=== PATIENT | female | born 1940 | race Caucasian/White ===

== ENCOUNTER → 2018-11-28 | Outpatient (CLI) | payer MEDICARE ==
--- NOTE | 2018-11-28 16:08 | US ---
EXAMINATION TYPE: US gallbladder DATE OF EXAM: 11/28/2018 COMPARISON: NONE CLINICAL HISTORY: Right Upper Quad Pain R10.11. EXAM MEASUREMENTS: Liver Length: 12.2 cm Gallbladder Wall: 0.3 cm CBD: 0.9 cm Right Kidney: 9.0 x 4.5 x 50 cm Pancreas: Obscured by bowel gas Liver: limited imaging due to excessive amount of gas and organ position in ribs Gallbladder: No stones seen Evidence for sonographic Field's sign: Yes CBD: dilated Right Kidney: No hydronephrosis or masses seen Patient states "kidneys ar not good, don't work" IMPRESSION: 1. Visualized portions of the abdomen ultrasound or unremarkable.
== END | disposition home or self-care (01) ==
LOC: RADUSWWP 10:17
PROVIDERS: ATTEND Internal Medicine
DX: R10.11 Right upper quadrant pain (principal)
CPT/HCPCS: 76705

== ENCOUNTER → 2019-03-02 | Outpatient (CLI) | payer MEDICARE ==
[2019-03-02 12:06] LABS: Basophils % (A) 0 %; Eosinophils # (A) 0.3 k/uL (0-0.7); Eosinophils % (A) 4 %; HGB 14.6 gm/dL (11.4-16.0); Lymphocytes # (A) 1.3 k/uL (1.0-4.8); Lymphocytes % (A) 17 %; MCH 29.4 pg (25.0-35.0); MCHC 31.1 g/dL (31.0-37.0); MCV 94.5 fL (80.0-100.0); Mean Platelet Volume 6.9; Monocytes # (A) 0.4 k/uL (0-1.0); Monocytes % (A) 5 %; Neutrophils # (A) 5.7 k/uL (1.3-7.7); Neutrophils % (A) 72 %; Platelet Count 304 k/uL (150-450); RBC 4.97 m/uL (3.80-5.40); RDW 13.6 % (11.5-15.5); WBC 7.8 k/uL (3.8-10.6)
[2019-03-02 16:14] LABS: Iron Saturation 17.19 (12.00-45.00)
[2019-03-02 16:21] LABS: Vitamin D 25 Hydroxy 35.2 ng/mL (30.0-100.0)
[2019-03-02 16:37] LABS: African American GFR (CKD) 45.5 (60.0-200.0); Anion Gap 14.8 mmol/L (4.00-12.00); BUN/Creat Ratio 25.38 Ratio (12.00-20.00); Calcium 9.9 mg/dL (8.7-10.3); Carbon Dioxide 22.2 mmol/L (21.6-31.8); LDL Cholesterol,Calculated 77.6 mg/dL (0.0-131.0); Potassium 4.7 mmol/L (3.5-5.5); VLDL Calculation 27.4 mg/dL (5.00-40.00)
[2019-03-02 19:08] LABS: Hemoglobin A1C 8.1 % (4.0-6.0)
== END | disposition home or self-care (01) ==
LOC: LABWHC1 10:39
PROVIDERS: ATTEND Nurse Practitioner Adult Health
DX: E11.65 Type 2 diabetes mellitus with hyperglycemia (principal); E78.5 Hyperlipidemia, unspecified; J44.9 Chronic obstructive pulmonary disease, unspecified; N18.3 Chronic kidney disease, stage 3 (moderate); I12.9 Hypertensive chronic kidney disease with stage 1 through stage 4 chronic kidney disease, or unspecified chronic kidney disease
CPT/HCPCS: 36415; 80048; 80061; 82306; 83036; 83540; 83550; 84443; 85025

== ENCOUNTER → 2019-03-13 | Outpatient (CLI) | payer MEDICARE ==
--- NOTE | 2019-03-13 15:43 | US ---
EXAMINATION TYPE: US mass soft tissue chest/back DATE OF EXAM: 03/13/2019 COMPARISON: NONE CLINICAL HISTORY: M71.38 Bursal cyst. palpable on back to the left of thoracic spine for years TECHNIQUE/FINDINGS: The patient's area of palpable abnormality in the left paracentral thoracic spine soft tissues was scanned. At this location there is a 4.8 x 3.7 x 0.9 cm well-circumscribed isoechoi c mass. This is avascular with internal septa appearing as a lipomatous lesion. IMPRESSION: Lipomatous lesion corresponds to the palpable abnormality with no aggressive features at this time. If there is interval growth clinically MRI with contrast could exclude malignant lipomato us lesion.
== END | disposition home or self-care (01) ==
LOC: RADUSWWP 15:02
PROVIDERS: ATTEND Internal Medicine
DX: M79.9 Soft tissue disorder, unspecified (principal)

== ENCOUNTER 2019-06-29 11:27 | Emergency (ER) | payer MEDICARE ==
[2019-06-29 11:38] VITALS: RESP 18; TEMP 97.8
[2019-06-29] MEDS ORDERED: SODIUM CHLORIDE 0.9% 1,000 ML IV ONE (11:40)
[2019-06-29] MEDS ORDERED: SODIUM CHLORIDE 0.9% 500 ML 500 ML IV STA ×2 (11:58→13:09)
[2019-06-29 12:15] LABS: Glucose,Whole Blood 234 mg/dL (75-99)
--- NOTE | 2019-06-29 12:15 | ED ---
Altered Mental Status HPI - General Chief Complaint: Altered Mental Status Stated Complaint: accidental overdose Time Seen by Provider: 06/29/19 11:40 Source: patient, family, RN notes reviewed Mode of arrival: ambulatory Limitations: no limitations - History of Present Illness Initial Comments: This 78-year-old female who was brought in by family for evaluation of some altered mental status decreased level of consciousness. Patient states that she took too much baclofen. She took a tablet at 6:00 last night and into between 6 and 11 last evening. She feels somewhat lightheaded dizzy when she gets up to walk no focal deficits he does have a slight headache no blurry vision no fevers chills nausea vomiting sweats no other symptoms. MD Complaint: altered mental status, decreased responsiveness - Related Data Home Medications Medication Instructions Recorded Confirmed DULoxetine HCL [Cymbalta] 30 mg PO DAILY 12/09/18 06/29/19 Furosemide [Lasix] 40 mg PO DAILY 12/09/18 06/29/19 cloNIDine HCL [Catapres] 0.1 mg PO DAILY 12/09/18 06/29/19 traMADol-ACETAMINOP 37.5-325MG 1 tab PO Q4HR PRN 12/09/18 06/29/19 [Ultracet] Albuterol Sulfate [Proair Hfa] 2 puff INHALATION RT-Q4H PRN 06/29/19 06/29/19 Budesonide/Formoterol Fumarate 2 puff INHALATION RT-BID 06/29/19 06/29/19 [Symbicort 160-4.5 Mcg Inhaler] Enalapril [Vasotec] 2.5 mg PO DAILY 06/29/19 06/29/19 Gabapentin [Neurontin] 300 mg PO QID 06/29/19 06/29/19 Lactulose 10 gm PO DAILY PRN 06/29/19 06/29/19 glipiZIDE XL [Glucotrol Xl] 2.5 mg PO DAILY 06/29/19 06/29/19 Previous Rx's Medication Instructions Recorded Aspirin 81 mg PO DAILY #30 chew 12/15/18 Atorvastatin [Lipitor] 20 mg PO DAILY #30 tab 12/15/18 Isosorbide Mononitrate ER [Imdur] 30 mg PO DAILY #30 tab.er.24h 12/15/18 Allergies Allergy/AdvReac Type Severity Reaction Status Date / Time latex Allergy Unknown Verified 06/29/19 13:36 Penicillins Allergy Unknown Verified 06/29/19 13:36 Review of Systems ROS Statement: Those systems with pertinent positive or pertinent negative responses have been documented in the HPI. ROS Other: All systems not noted in ROS Statement are negative. Past Medical History Past Medical History: COPD, Diabetes Mellitus, Eye Disorder, GERD/Reflux, Hypertension Additional Past Medical History / Comment(s): arthitis, hiatal hernia, blind in left eye History of Any Multi-Drug Resistant Organisms: None Reported Past Surgical History: Hysterectomy, Orthopedic Surgery Past Psychological History: No Psychological Hx Reported Smoking Status: Never smoker Past Alcohol Use History: None Reported Past Drug Use History: None Reported General Exam - General Exam Comments Initial Comments: This is a well-developed well-nourished awake alert oriented 3 female she does demonstrate difficulty with hearing Limitations: no limitations General appearance: alert, in no apparent distress Head exam: Present: atraumatic, normocephalic, normal inspection Eye exam: Present: normal appearance, PERRL, EOMI. Absent: scleral icterus, conjunctival injection, periorbital swelling ENT exam: Present: mucous membranes dry Neck exam: Present: normal inspection, full ROM, other (No stridor JVD or bruits). Absent: tenderness, meningismus, lymphadenopathy Respiratory exam: Present: normal lung sounds bilaterally. Absent: respiratory distress, wheezes, rales, rhonchi, stridor Cardiovascular Exam: Present: regular rate, normal rhythm, normal heart sounds. Absent: systolic murmur, diastolic murmur, rubs, gallop, clicks GI/Abdominal exam: Present: soft, normal bowel sounds. Absent: distended, tenderness, guarding, rebound, rigid Extremities exam: Present: normal inspection, full ROM, normal capillary refill. Absent: tenderness, pedal edema, joint swelling, calf tenderness Back exam: Present: normal inspection Neurological exam: Present: alert, oriented X3, CN II-XII intact Psychiatric exam: Present: normal affect, normal mood Skin exam: Present: warm, dry, intact, normal color. Absent: rash Course Vital Signs 06/29/19 11:35 Temperature 97.8 F Pulse Rate 70 Respiratory 18 Rate Blood Pressure 159/79 O2 Sat by Pulse 95 Oximetry Medical Decision Making - Medical Decision Making Patient showing much improved after IV fluids I did discuss [employer] her and her family patient will be discharged with instructions to not start her medications will tonight. Take it also as directed. Follow-up with her doctor return when necessary also increase oral fluids - Lab Data Result diagrams: 06/29/19 12:50 06/29/19 12:08 Lab Results 06/29/19 06/29/19 06/29/19 Range/Units 12:08 12:08 12:08 WBC (3.8-10.6) k/uL RBC (3.80-5.40) m/uL Hgb (11.4-16.0) gm/dL Hct (34.0-46.0) % MCV (80.0-100.0) fL MCH (25.0-35.0) pg MCHC (31.0-37.0) g/dL RDW (11.5-15.5) % Plt Count (150-450) k/uL Neutrophils % % Lymphocytes % % Monocytes % % Eosinophils % % Basophils % % Neutrophils # (1.3-7.7) k/uL Lymphocytes # (1.0-4.8) k/uL Monocytes # (0-1.0) k/uL Eosinophils # (0-0.7) k/uL Basophils # (0-0.2) k/uL PT (9.0-12.0) sec INR (<1.2) APTT (22.0-30.0) sec Sodium 138 (137-145) mmol/L Potassium 4.9 (3.5-5.1) mmol/L Chloride 106 (98-107) mmol/L Carbon Dioxide 19 L (22-30) mmol/L Anion Gap 13 mmol/L BUN 22 H (7-17) mg/dL Creatinine 0.79 (0.52-1.04) mg/dL Est GFR (CKD-EPI)AfAm 83 (>60 ml/min/1.73 sqM) Est GFR (CKD-EPI)NonAf 72 (>60 ml/min/1.73 sqM) Glucose 237 H (74-99) mg/dL POC Glucose (mg/dL) (75-99) mg/dL POC Glu Jewellery Designer ID Calcium 9.4 (8.4-10.2) mg/dL Magnesium 2.0 (1.6-2.3) mg/dL Total Bilirubin 0.6 (0.2-1.3) mg/dL AST 30 (14-36) U/L ALT 17 (9-52) U/L Alkaline Phosphatase 77 (38-126) U/L Ammonia 10 (<30) umol/L Creatine Kinase 60 (30-135) U/L Troponin I <0.012 (0.000-0.034) ng/mL Total Protein 6.6 (6.3-8.2) g/dL Albumin 3.9 (3.5-5.0) g/dL Urine Color Urine Appearance (Clear) Urine pH (5.0-8.0) Ur Specific [place] (1.001-1.035) Urine Protein (Negative) Urine Glucose (UA) (Negative) Urine Ketones (Negative) Urine Blood (Negative) Urine Nitrite (Negative) Urine Bilirubin (Negative) Urine Urobilinogen (<2.0) mg/dL Ur Leukocyte Esterase (Negative) Urine RBC (0-5) /hpf Urine WBC (0-5) /hpf Ur Squamous Epith Cells (0-4) /hpf Urine Opiates Screen (NotDetected) Ur Oxycodone Screen (NotDetected) Urine Methadone Screen (NotDetected) Ur Propoxyphene Screen (NotDetected) Ur Barbiturates Screen (NotDetected) U Tricyclic Antidepress (NotDetected) Ur Phencyclidine Scrn (NotDetected) Ur Amphetamines Screen (NotDetected) U Methamphetamines Scrn (NotDetected) U Benzodiazepines Scrn (NotDetected) Urine Cocaine Screen (NotDetected) U Marijuana (THC) Screen (NotDetected) 06/29/19 06/29/19 06/29/19 Range/Units 12:12 12:30 12:50 WBC 7.5 (3.8-10.6) k/uL RBC 4.46 (3.80-5.40) m/uL Hgb 13.9 (11.4-16.0) gm/dL Hct 41.9 (34.0-46.0) % MCV 93.8 (80.0-100.0) fL MCH 31.1 (25.0-35.0) pg MCHC 33.2 (31.0-37.0) g/dL RDW 13.0 (11.5-15.5) % Plt Count 238 (150-450) k/uL Neutrophils % 84 % Lymphocytes % 10 % Monocytes % 4 % Eosinophils % 2 % Basophils % 0 % Neutrophils # 6.2 (1.3-7.7) k/uL Lymphocytes # 0.7 L (1.0-4.8) k/uL Monocytes # 0.3 (0-1.0) k/uL Eosinophils # 0.1 (0-0.7) k/uL Basophils # 0.0 (0-0.2) k/uL PT (9.0-12.0) sec INR (<1.2) APTT (22.0-30.0) sec Sodium (137-145) mmol/L Potassium (3.5-5.1) mmol/L Chloride (98-107) mmol/L Carbon Dioxide (22-30) mmol/L Anion Gap mmol/L BUN (7-17) mg/dL Creatinine (0.52-1.04) mg/dL Est GFR (CKD-EPI)AfAm (>60 ml/min/1.73 sqM) Est GFR (CKD-EPI)NonAf (>60 ml/min/1.73 sqM) Glucose (74-99) mg/dL POC Glucose (mg/dL) 234 H (75-99) mg/dL POC Glu Jewellery Designer NELA Pamela Che Calcium (8.4-10.2) mg/dL Magnesium (1.6-2.3) mg/dL Total Bilirubin (0.2-1.3) mg/dL AST (14-36) U/L ALT (9-52) U/L Alkaline Phosphatase (38-126) U/L Ammonia (<30) umol/L Creatine Kinase (30-135) U/L Troponin I (0.000-0.034) ng/mL Total Protein (6.3-8.2) g/dL Albumin (3.5-5.0) g/dL Urine Color Light Yellow Urine Appearance Clear (Clear) Urine pH 5.5 (5.0-8.0) Ur Specific [place] 1.009 (1.001-1.035) Urine Protein Negative (Negative) Urine Glucose (UA) 2+ H (Negative) Urine Ketones Negative (Negative) Urine Blood Negative (Negative) Urine Nitrite Negative (Negative) Urine Bilirubin Negative (Negative) Urine Urobilinogen <2.0 (<2.0) mg/dL Ur Leukocyte Esterase Trace H (Negative) Urine RBC 1 (0-5) /hpf Urine WBC 2 (0-5) /hpf Ur Squamous Epith Cells 1 (0-4) /hpf Urine Opiates Screen Not Detected (NotDetected) Ur Oxycodone Screen Not Detected (NotDetected) Urine Methadone Screen Not Detected (NotDetected) Ur Propoxyphene Screen Not Detected (NotDetected) Ur Barbiturates Screen Not Detected (NotDetected) U Tricyclic Antidepress Not Detected (NotDetected) Ur Phencyclidine Scrn Not Detected (NotDetected) Ur Amphetamines Screen Not Detected (NotDetected) U Methamphetamines Scrn Not Detected (NotDetected) U Benzodiazepines Scrn Not Detected (NotDetected) Urine Cocaine Screen Not Detected (NotDetected) U Marijuana (THC) Screen Not Detected (NotDetected) 06/29/19 Range/Units 12:50 WBC (3.8-10.6) k/uL RBC (3.80-5.40) m/uL Hgb (11.4-16.0) gm/dL Hct (34.0-46.0) % MCV (80.0-100.0) fL MCH (25.0-35.0) pg MCHC (31.0-37.0) g/dL RDW (11.5-15.5) % Plt Count (150-450) k/uL Neutrophils % % Lymphocytes % % Monocytes % % Eosinophils % % Basophils % % Neutrophils # (1.3-7.7) k/uL Lymphocytes # (1.0-4.8) k/uL Monocytes # (0-1.0) k/uL Eosinophils # (0-0.7) k/uL Basophils # (0-0.2) k/uL PT 9.6 (9.0-12.0) sec INR 0.9 (<1.2) APTT 22.9 (22.0-30.0) sec Sodium (137-145) mmol/L Potassium (3.5-5.1) mmol/L Chloride (98-107) mmol/L Carbon Dioxide (22-30) mmol/L Anion Gap mmol/L BUN (7-17) mg/dL Creatinine (0.52-1.04) mg/dL Est GFR (CKD-EPI)AfAm (>60 ml/min/1.73 sqM) Est GFR (CKD-EPI)NonAf (>60 ml/min/1.73 sqM) Glucose (74-99) mg/dL POC Glucose (mg/dL) (75-99) mg/dL POC Glu Jewellery Designer ID Calcium (8.4-10.2) mg/dL Magnesium (1.6-2.3) mg/dL Total Bilirubin (0.2-1.3) mg/dL AST (14-36) U/L ALT (9-52) U/L Alkaline Phosphatase (38-126) U/L Ammonia (<30) umol/L Creatine Kinase (30-135) U/L Troponin I (0.000-0.034) ng/mL Total Protein (6.3-8.2) g/dL Albumin (3.5-5.0) g/dL Urine Color Urine Appearance (Clear) Urine pH (5.0-8.0) Ur Specific [place] (1.001-1.035) Urine Protein (Negative) Urine Glucose (UA) (Negative) Urine Ketones (Negative) Urine Blood (Negative) Urine Nitrite (Negative) Urine Bilirubin (Negative) Urine Urobilinogen (<2.0) mg/dL Ur Leukocyte Esterase (Negative) Urine RBC (0-5) /hpf Urine WBC (0-5) /hpf Ur Squamous Epith Cells (0-4) /hpf Urine Opiates Screen (NotDetected) Ur Oxycodone Screen (NotDetected) Urine Methadone Screen (NotDetected) Ur Propoxyphene Screen (NotDetected) Ur Barbiturates Screen (NotDetected) U Tricyclic Antidepress (NotDetected) Ur Phencyclidine Scrn (NotDetected) Ur Amphetamines Screen (NotDetected) U Methamphetamines Scrn (NotDetected) U Benzodiazepines Scrn (NotDetected) Urine Cocaine Screen (NotDetected) U Marijuana (THC) Screen (NotDetected) - Radiology Data Radiology results: report reviewed (I did review the imaging and report no acute findings. OLD CALCIFIED lesion noted on CAT scan), image reviewed Disposition Clinical Impression: Medication reaction, Accidental overdose, Dehydration Disposition: HOME SELF-CARE Condition: Good Instructions (If sedation given, give patient instructions): Dehydration (ED) Additional Instructions: Take your medications as directed do not start baclofen until tonight Is patient prescribed a controlled substance at d/c from ED?: No Referrals: Hu Crawford MD [Primary Care Provider] - 1-2 days
[2019-06-29 12:35] LABS: Appearance,Urine Clear (Clear); Bilirubin,Urine Negative (Negative); Blood,Urine Negative (Negative); Color,Urine Light Yellow; Glucose,Urine (UA) 2+ (Negative); Ketones,Urine Negative (Negative); Leukocyte Esterase,Urine Trace (Negative); Nitrite,Urine Negative (Negative); PH, Urine 5.5 (5.0-8.0); Protein,Urine Negative (Negative); RBC,Urine 1 /hpf (0-5); Specific Gravity,Urine 1.009 (1.001-1.035); Squamous Epithelial Cell,Urine 1 /hpf (0-4); Urobilinogen,Urine <2.0 mg/dL (<2.0)
[2019-06-29 12:40] LABS: Albumin 3.9 g/dL (3.5-5.0); Calcium 9.4 mg/dL (8.4-10.2); Total Bilirubin 0.6 mg/dL (0.2-1.3); Total Protein 6.6 g/dL (6.3-8.2)
[2019-06-29 12:42] LABS: Potassium 4.9 mmol/L (3.5-5.1)
--- NOTE | 2019-06-29 12:50 | XR ---
EXAMINATION TYPE: XR chest 2V DATE OF EXAM: 06/29/2019 COMPARISON: 12/13/2018 HISTORY: Shortness of breath TECHNIQUE: Frontal and lateral views of the chest are obtained. FINDINGS: Scattered senescent parenchymal changes noted. No evidence for infiltrate. No evidence for atelectasis. Heart size is stable. Mediastinal structures are stable and grossly unremarkable. No evidence for hilar prominence. Degenerative changes dorsal spine. IMPRESSION: 1. No evidence for acute pulmonary disease.
--- NOTE | 2019-06-29 12:51 | CT ---
EXAMINATION TYPE: CT brain wo con DATE OF EXAM: 06/29/2019 COMPARISON: 12/09/2018 HISTORY: 79-year-old female confusion, altered mental status TECHNIQUE: Examination was done in axial plane without intravenous contrast. Coronal and sagittal r econstructions performed. CT DLP: 1142.4 mGycm Automated exposure control for dose reduction was used. FINDINGS: There is no evidence of acute intracranial hemorrhage, acute ischemic changes, mass effect, or extra -axial fluid collection. There is no effacement of cerebral sulci or basal subarachnoid cisterns. T here is no hydrocephalus. There is no midline shift. Hart-white matter distinction is preserved. Atherosclerotic calcifications within the carotid siphons. Mild patchy white matter hypodensities in both cerebral hemispheres are unchanged. Partially calcified extra-axial lesion along the anterior left frontal convexity measures 1.2 cm, unc hanged from 12/09/2018, a small meningioma is suspected. Paranasal sinuses and mastoid air cells well pneumatized. Orbits and globes are intact. IMPRESSION: 1. A partially calcified 1.2 cm extra-axial lesion along the anterior left frontal convexity stable f rom 12/09/2018. A small meningioma is suspected. Consider 6 month follow-up contrast enhanced MRI to re assess. 2. Mild patchy changes of chronic small vessel ischemic disease. 3. No acute intracranial abnormality seen.
[2019-06-29 12:55] LABS: Amphetamine Screen,Urine Not Detected (NotDetected); Barbiturate Screen,Urine Not Detected (NotDetected); Benzodiazepines Screen,Urine Not Detected (NotDetected); Cocaine Screen,Urine Not Detected (NotDetected); Methadone Screen, Urine Not Detected (NotDetected); Opiate Screen,Urine Not Detected (NotDetected); Oxycodone Screen, Urine Not Detected (NotDetected); Phencyclidine Screen,Urine Not Detected (NotDetected); Tricyclic Antidepressant,Urine Not Detected (NotDetected); Urn Cannabinoid Scrn Not Detected (NotDetected)
[2019-06-29 13:23] LABS: Basophils % (A) 0 %; Eosinophils # (A) 0.1 k/uL (0-0.7); Eosinophils % (A) 2 %; HCT 41.9 % (34.0-46.0); HGB 13.9 gm/dL (11.4-16.0); Lymphocytes # (A) 0.7 k/uL (1.0-4.8); Lymphocytes % (A) 10 %; MCH 31.1 pg (25.0-35.0); MCHC 33.2 g/dL (31.0-37.0); MCV 93.8 fL (80.0-100.0); Mean Platelet Volume 6.1; Monocytes # (A) 0.3 k/uL (0-1.0); Monocytes % (A) 4 %; Neutrophils # (A) 6.2 k/uL (1.3-7.7); Neutrophils % (A) 84 %; Platelet Count 238 k/uL (150-450); RBC 4.46 m/uL (3.80-5.40); WBC 7.5 k/uL (3.8-10.6)
[2019-06-29 13:38] LABS: INR 0.9 (<1.2); Partial Thromboplastin Time 22.9 sec (22.0-30.0); Prothrombin Time 9.6 sec (9.0-12.0)
[2019-06-29 14:23] VITALS: BP 165/99; PULSE 56
== END 2019-06-29 14:21 | disposition home or self-care (01) ==
LOC: EC 11:27
DX: T42.8X1A Poisoning by antiparkinsonism drugs and other central muscle-tone depressants, accidental (unintentional), initial encounter (principal); E86.0 Dehydration; H91.90 Unspecified hearing loss, unspecified ear; J44.9 Chronic obstructive pulmonary disease, unspecified; E11.9 Type 2 diabetes mellitus without complications; I10 Essential (primary) hypertension; M19.90 Unspecified osteoarthritis, unspecified site; H54.62 Unqualified visual loss, left eye, normal vision right eye; Z88.0 Allergy status to penicillin; Z91.040 Latex allergy status; Z79.51 Long term (current) use of inhaled steroids; Z79.84 Long term (current) use of oral hypoglycemic drugs; Z79.891 Long term (current) use of opiate analgesic; Z79.899 Other long term (current) drug therapy
CPT/HCPCS: 36415; 70450; 71046; 80053; 80306; 81001; 82140; 82550; 83735; 84484; 85025; 85610; 85730; 93005; 96360; 96361; 99285

== ENCOUNTER 2019-07-01 00:08 | Observation (INO) | payer MEDICARE ==
[2019-07-01] MEDS ORDERED: SODIUM CHLORIDE 0.9% 500 ML 500 ML IV ONE (00:25)
[2019-07-01] MEDS ORDERED: MORPHINE SULFATE 4 MG/ML SYRINGE IV STA (00:45)
--- NOTE | 2019-07-01 01:05 | ED ---
General Adult HPI - General Chief complaint: Altered Mental Status Stated complaint: Recheck, Altered Time Seen by Provider: 07/01/19 00:21 Source: patient, family, RN notes reviewed, old records reviewed Mode of arrival: ambulatory Limitations: no limitations - History of Present Illness Initial comments: 79-year-old female patient past history COPD, type 2 diabetes presents ED chief complaint of altered mental status. Patient was seen yesterday for dehydration, accidentally taking too many of her muscle relaxers. Patient was discharged in the hospital yesterday. reports that he was out running errands today, came back to find his somewhat confused. She is currently complaining of a headache, mild epigastric pain. Also complains of some back pain which patient reports is chronic. Denies any chest pain or shortness breath at this time. Denies any other complaints. Systemic: Pt denies fatigue, fever/chills, rash. Pt denies weakness, night sweats, weight loss. Neuro: Pt denies headache, visual disturbances, syncope or pre-syncope. HEENT: Pt denies ocular discharge or irritation, otalgia, rhinorrhea, pharyngitis or notable lymphadenopathy. Cardiopulmonary: Pt denies chest pain, SOB, heart palpitations, dyspnea on exertion. Abdominal/GI: Pt denies n/v/d. : Pt denies dysuria, burning w/ urination, frequency/urgency. Denies new onset urinary or bowel incontinence. MSK: Pt denies myalgia, loss of strength or function in extremities. Neuro: Pt denies new onset weakness, paresthesias. - Related Data Home Medications Medication Instructions Recorded Confirmed DULoxetine HCL [Cymbalta] 30 mg PO DAILY 12/09/18 06/29/19 Furosemide [Lasix] 40 mg PO DAILY 12/09/18 06/29/19 cloNIDine HCL [Catapres] 0.1 mg PO DAILY 12/09/18 06/29/19 traMADol-ACETAMINOP 37.5-325MG 1 tab PO Q4HR PRN 12/09/18 06/29/19 [Ultracet] Albuterol Sulfate [Proair Hfa] 2 puff INHALATION RT-Q4H PRN 06/29/19 06/29/19 Budesonide/Formoterol Fumarate 2 puff INHALATION RT-BID 06/29/19 06/29/19 [Symbicort 160-4.5 Mcg Inhaler] Enalapril [Vasotec] 2.5 mg PO DAILY 06/29/19 06/29/19 Gabapentin [Neurontin] 300 mg PO QID 06/29/19 06/29/19 Lactulose 10 gm PO DAILY PRN 06/29/19 06/29/19 glipiZIDE XL [Glucotrol Xl] 2.5 mg PO DAILY 06/29/19 06/29/19 Previous Rx's Medication Instructions Recorded Aspirin 81 mg PO DAILY #30 chew 12/15/18 Atorvastatin [Lipitor] 20 mg PO DAILY #30 tab 12/15/18 Isosorbide Mononitrate ER [Imdur] 30 mg PO DAILY #30 tab.er.24h 12/15/18 Allergies Allergy/AdvReac Type Severity Reaction Status Date / Time latex Allergy Unknown Verified 07/01/19 00:19 Penicillins Allergy Unknown Verified 07/01/19 00:19 Review of Systems ROS Statement: Those systems with pertinent positive or pertinent negative responses have been documented in the HPI. ROS Other: All systems not noted in ROS Statement are negative. Past Medical History Past Medical History: COPD, Diabetes Mellitus, Eye Disorder, GERD/Reflux, Hypertension Additional Past Medical History / Comment(s): arthitis, hiatal hernia, blind in left eye History of Any Multi-Drug Resistant Organisms: None Reported Past Surgical History: Hysterectomy, Orthopedic Surgery Past Psychological History: No Psychological Hx Reported Smoking Status: Never smoker Past Alcohol Use History: None Reported Past Drug Use History: None Reported General Exam - General Exam Comments Initial Comments: Constitutional: NAD, AOX3, Pt has pleasant affect. HEENT: NC/AT, trachea midline, neck supple, no lymphadenopathy. Posterior pharynx non erythematous, without exudates. External ears appear normal, without discharge. Mucous membranes moist. Eyes PERRLA, EOM intact. There is no scleral icterus. No pallor noted. Cardiopulmonary: RRR, no murmurs, rubs or gallops, no JVD noted. Lungs CTAB in anterior and posterior werner. No peripheral edema. Abdominal exam: Abdomen soft and non-distended. Abdomen mildly tender to palpation in epigastric region. No guarding noted. No pulsatile mass. Bowel sounds active in LLQ. No hepatosplenomegaly. No ecchymosis Neuro: CN II-XII intact. No nuchal rigidity. No raccon eyes, no kirk sign, no hemotympanum. No cervical spinal tenderness. NIH 0. MSK: No posterior calf tenderness bilaterally, homans sign negative bilaterally. Posterior tibialis and radial pulse +2 bilaterally. Sensation intact in upper and lower extremities. Full active ROM in upper and lower extremities, 5/5 stregnth. Limitations: no limitations Course Vital Signs 07/01/19 07/01/19 00:16 03:38 Temperature 97.3 F L Pulse Rate 80 80 Respiratory 20 18 Rate Blood Pressure 168/98 172/89 O2 Sat by Pulse 96 95 Oximetry Medical Decision Making - Medical Decision Making 79-year-old female patient past history COPD, type 2 diabetes presents ED chief complaint of altered mental status. Patient was seen yesterday for dehydration, accidentally taking too many of her muscle relaxers. Patient was discharged in the hospital yesterday. reports that he was out running errands today, came back to find his somewhat confused. She is currently complaining of a headache, mild epigastric pain. Also complains of some back pain which patient reports is chronic. Denies any chest pain or shortness breath at this time. Denies any other complaints. Patient vital signs displayed mild hypertension otherwise stable. Physical exam displayed an NIH of 0. Neurologic exam within normal limits. Distal pulses intact equal, mild epigastric tenderness. Left investigations. She'll mild dehydration. Troponin 0.018. EKG nonischemic. 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 No change from last exam. Chest x- ray displayed chronic elevated right diaphragm. CT of aorta with contrast and display any dissection. Patient feeling much improved. Reports the headache is resolved. Abdomen nontender. Patient continues to be alert and oriented 3, neurologic exam within normal limits. Patient will be admitted for altered mental status case discussed with Dr. Pelletier. - Lab Data Result diagrams: 07/01/19 01:12 07/01/19 01:12 Lab Results 07/01/19 07/01/19 07/01/19 Range/Units 01:12 01:12 01:12 WBC 11.6 H (3.8-10.6) k/uL RBC 5.29 (3.80-5.40) m/uL Hgb 16.9 H D (11.4-16.0) gm/dL Hct 49.4 H (34.0-46.0) % MCV 93.3 (80.0-100.0) fL MCH 31.9 (25.0-35.0) pg MCHC 34.2 (31.0-37.0) g/dL RDW 13.3 (11.5-15.5) % Plt Count 305 (150-450) k/uL Neutrophils % 85 % Lymphocytes % 8 % Monocytes % 4 % Eosinophils % 1 % Basophils % 1 % Neutrophils # 9.8 H (1.3-7.7) k/uL Lymphocytes # 1.0 (1.0-4.8) k/uL Monocytes # 0.5 (0-1.0) k/uL Eosinophils # 0.1 (0-0.7) k/uL Basophils # 0.1 (0-0.2) k/uL PT 9.8 (9.0-12.0) sec INR 0.9 (<1.2) APTT 24.5 (22.0-30.0) sec Sodium 141 (137-145) mmol/L Potassium 4.6 (3.5-5.1) mmol/L Chloride 106 (98-107) mmol/L Carbon Dioxide 24 (22-30) mmol/L Anion Gap 11 mmol/L BUN 18 H (7-17) mg/dL Creatinine 0.90 (0.52-1.04) mg/dL Est GFR (CKD-EPI)AfAm 71 (>60 ml/min/1.73 sqM) Est GFR (CKD-EPI)NonAf 61 (>60 ml/min/1.73 sqM) Glucose 160 H (74-99) mg/dL Calcium 10.5 H (8.4-10.2) mg/dL Total Bilirubin 1.0 (0.2-1.3) mg/dL AST 34 (14-36) U/L ALT 29 (9-52) U/L Alkaline Phosphatase 127 H (38-126) U/L Ammonia (<30) umol/L Troponin I (0.000-0.034) ng/mL Total Protein 8.5 H (6.3-8.2) g/dL Albumin 5.0 (3.5-5.0) g/dL Urine Color Urine Appearance (Clear) Urine pH (5.0-8.0) Ur Specific [place] (1.001-1.035) Urine Protein (Negative) Urine Glucose (UA) (Negative) Urine Ketones (Negative) Urine Blood (Negative) Urine Nitrite (Negative) Urine Bilirubin (Negative) Urine Urobilinogen (<2.0) mg/dL Ur Leukocyte Esterase (Negative) Urine RBC (0-5) /hpf Urine WBC (0-5) /hpf Ur Squamous Epith Cells (0-4) /hpf Hyaline Casts (0-2) /lpf Urine Mucus (None) /hpf Urine Opiates Screen (NotDetected) Ur Oxycodone Screen (NotDetected) Urine Methadone Screen (NotDetected) Ur Propoxyphene Screen (NotDetected) Ur Barbiturates Screen (NotDetected) U Tricyclic Antidepress (NotDetected) Ur Phencyclidine Scrn (NotDetected) Ur Amphetamines Screen (NotDetected) U Methamphetamines Scrn (NotDetected) U Benzodiazepines Scrn (NotDetected) Urine Cocaine Screen (NotDetected) U Marijuana (THC) Screen (NotDetected) 07/01/19 07/01/19 07/01/19 Range/Units 01:12 01:33 01:40 WBC (3.8-10.6) k/uL RBC (3.80-5.40) m/uL Hgb (11.4-16.0) gm/dL Hct (34.0-46.0) % MCV (80.0-100.0) fL MCH (25.0-35.0) pg MCHC (31.0-37.0) g/dL RDW (11.5-15.5) % Plt Count (150-450) k/uL Neutrophils % % Lymphocytes % % Monocytes % % Eosinophils % % Basophils % % Neutrophils # (1.3-7.7) k/uL Lymphocytes # (1.0-4.8) k/uL Monocytes # (0-1.0) k/uL Eosinophils # (0-0.7) k/uL Basophils # (0-0.2) k/uL PT (9.0-12.0) sec INR (<1.2) APTT (22.0-30.0) sec Sodium (137-145) mmol/L Potassium (3.5-5.1) mmol/L Chloride (98-107) mmol/L Carbon Dioxide (22-30) mmol/L Anion Gap mmol/L BUN (7-17) mg/dL Creatinine (0.52-1.04) mg/dL Est GFR (CKD-EPI)AfAm (>60 ml/min/1.73 sqM) Est GFR (CKD-EPI)NonAf (>60 ml/min/1.73 sqM) Glucose (74-99) mg/dL Calcium (8.4-10.2) mg/dL Total Bilirubin (0.2-1.3) mg/dL AST (14-36) U/L ALT (9-52) U/L Alkaline Phosphatase (38-126) U/L Ammonia <9 (<30) umol/L Troponin I 0.018 (0.000-0.034) ng/mL Total Protein (6.3-8.2) g/dL Albumin (3.5-5.0) g/dL Urine Color Yellow Urine Appearance Clear (Clear) Urine pH 6.0 (5.0-8.0) Ur Specific [place] 1.019 (1.001-1.035) Urine Protein 2+ H (Negative) Urine Glucose (UA) Trace H (Negative) Urine Ketones 1+ H (Negative) Urine Blood Trace H (Negative) Urine Nitrite Negative (Negative) Urine Bilirubin Negative (Negative) Urine Urobilinogen 2.0 (<2.0) mg/dL Ur Leukocyte Esterase Negative (Negative) Urine RBC 2 (0-5) /hpf Urine WBC 2 (0-5) /hpf Ur Squamous Epith Cells <1 (0-4) /hpf Hyaline Casts 4 H (0-2) /lpf Urine Mucus Rare H (None) /hpf Urine Opiates Screen Not Detected (NotDetected) Ur Oxycodone Screen Not Detected (NotDetected) Urine Methadone Screen Not Detected (NotDetected) Ur Propoxyphene Screen Not Detected (NotDetected) Ur Barbiturates Screen Not Detected (NotDetected) U Tricyclic Antidepress Not Detected (NotDetected) Ur Phencyclidine Scrn Not Detected (NotDetected) Ur Amphetamines Screen Not Detected (NotDetected) U Methamphetamines Scrn Not Detected (NotDetected) U Benzodiazepines Scrn Not Detected (NotDetected) Urine Cocaine Screen Not Detected (NotDetected) U Marijuana (THC) Screen Not Detected (NotDetected) - EKG Data -: EKG Interpreted by Me (and Dr. Pelletier) EKG Comments: Ventricular rate 82,. Full and 72, QRS 70, QT/QTC 380 says 443. Normal sinus rhythm, left axis deviation, pulse criteria for left ventricular hypertrophy. No concern for acute ischemia at this time. Disposition Clinical Impression: AMS (altered mental status), Dehydration Disposition: ADMITTED IP TO THIS HOSP Condition: Serious Is patient prescribed a controlled substance at d/c from ED?: No Referrals: Hu Crawford MD [Primary Care Provider] - 1-2 days
--- NOTE | 2019-07-01 01:11 | CT ---
EXAMINATION TYPE: CT brain wo con DATE OF EXAM: 07/01/2019 COMPARISON: 06/29/2019 HISTORY: ams CT DLP: 1087.4 mGycm Automated exposure control for dose reduction was used. FINDINGS: Ventricles have normal size. There is no mass effect nor midline shift. There is no sign of intracran ial hemorrhage. The calvarium is intact. There is no evidence of cerebral edema. There is somewhat bulbous appearance of the tip of the basilar artery. 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 NO EVIDENCE OF CEREBRAL INFARCT OR HEMORRHAGE. Brain not change d compared to last exam.
--- NOTE | 2019-07-01 01:12 | XR ---
EXAMINATION TYPE: XR chest 2V DATE OF EXAM: 07/01/2019 COMPARISON: 06/29/2019 HISTORY: Altered mental status TECHNIQUE: Frontal and lateral views of the chest are obtained. FINDINGS: There is elevated right diaphragm. There is minimal linear density at the lung bases. Ther e is no heart failure. Heart size is normal. There are chest leads. IMPRESSION: Chronic elevated right diaphragm. This could relate to paralysis. No heart failure or pu lmonary consolidation. No change.
[2019-07-01 01:21] LABS: Basophils # (A) 0.1 k/uL (0-0.2); Basophils % (A) 1 %; Eosinophils # (A) 0.1 k/uL (0-0.7); Eosinophils % (A) 1 %; HCT 49.4 % (34.0-46.0); Lymphocytes % (A) 8 %; MCH 31.9 pg (25.0-35.0); MCHC 34.2 g/dL (31.0-37.0); MCV 93.3 fL (80.0-100.0); Mean Platelet Volume 5.7; Monocytes # (A) 0.5 k/uL (0-1.0); Monocytes % (A) 4 %; Neutrophils # (A) 9.8 k/uL (1.3-7.7); Neutrophils % (A) 85 %; Platelet Count 305 k/uL (150-450); RBC 5.29 m/uL (3.80-5.40); RDW 13.3 % (11.5-15.5); WBC 11.6 k/uL (3.8-10.6)
[2019-07-01 01:25] LABS: HGB 16.9 gm/dL (11.4-16.0)
[2019-07-01 01:32] LABS: Calcium 10.5 mg/dL (8.4-10.2); Potassium 4.6 mmol/L (3.5-5.1); Total Protein 8.5 g/dL (6.3-8.2)
[2019-07-01 01:37] LABS: INR 0.9 (<1.2); Prothrombin Time 9.8 sec (9.0-12.0)
[2019-07-01 01:44] LABS: Appearance,Urine Clear (Clear); Bilirubin,Urine Negative (Negative); Blood,Urine Trace (Negative); Color,Urine Yellow; Glucose,Urine (UA) Trace (Negative); Hyaline Casts,Urine 4 /lpf (0-2); Ketones,Urine 1+ (Negative); Leukocyte Esterase,Urine Negative (Negative); Mucus,Urine Rare /hpf; Nitrite,Urine Negative (Negative); Protein,Urine 2+ (Negative); RBC,Urine 2 /hpf (0-5); Specific Gravity,Urine 1.019 (1.001-1.035); Squamous Epithelial Cell,Urine <1 /hpf (0-4); WBC,Urine 2 /hpf (0-5)
[2019-07-01 01:46] LABS: Partial Thromboplastin Time 24.5 sec (22.0-30.0)
[2019-07-01 02:03] LABS: Amphetamine Screen,Urine Not Detected (NotDetected); Barbiturate Screen,Urine Not Detected (NotDetected); Benzodiazepines Screen,Urine Not Detected (NotDetected); Cocaine Screen,Urine Not Detected (NotDetected); Methadone Screen, Urine Not Detected (NotDetected); Opiate Screen,Urine Not Detected (NotDetected); Oxycodone Screen, Urine Not Detected (NotDetected); Phencyclidine Screen,Urine Not Detected (NotDetected); Tricyclic Antidepressant,Urine Not Detected (NotDetected); Urn Cannabinoid Scrn Not Detected (NotDetected)
--- NOTE | 2019-07-01 02:49 | CT ---
EXAMINATION TYPE: CT angio thor/abd pel aorta DATE OF EXAM: 07/01/2019 COMPARISON: CT chest 05/02/2013 HISTORY: back pain CT DLP: 1191.8 mGycm. Automated Exposure Control for Dose Reduction was Utilized. CONTRAST: CT scan of the thorax, abdomen and pelvis is performed with IV Contrast, patient injected with 100 mL of Isovue 370. There are 3-D post processed images. FINDINGS: There is asymmetric enlargement of the left thyroid lobe that measures 4.5 cm. Thoracic aorta is inta ct. There is no thoracic aortic aneurysm or dissection. The ascending aorta measures 3.6 cm. There is elevated right diaphragm. There is some atelectasis at the right lung base. I see no filling defects in the pulmonary arteries. There is arterial flow in the superior mesenteric artery and celiac artery. There is bilateral arteri al flow in the renal arteries. There is some cortical thinning in the left kidney compared to the rig ht. There is no hydronephrosis. There is arterial flow in the iliac and femoral arteries. Thoracic an d lumbar spine appear intact. I see no compression fracture. Sternum is intact. Ribs appear intact. Liver spleen stomach pancreas appear normal. Bile ducts are not dilated. Gallbladder appears normal. Abdominal aorta is atheromatous. There is no retroperitoneal adenopathy. There is no mesenteric edema . There is no ascites or free air. There is no sign of bowel obstruction. IMPRESSION: Mild atherosclerotic vascular disease. No aortic aneurysm or dissection. There is mild atrophy of the left kidney compared to the right that is nonspecific. No obvious significant renal artery stenosis. Elevated right diaphragm could relate to diaphragm paralysis.
[2019-07-01] MEDS ORDERED: SODIUM CHLORIDE 0.9% 500 ML 500 ML IV STA (03:06)
[2019-07-01] MEDS ORDERED: NALOXONE 0.4 MG/ML 1 ML VIAL IV PRN (03:34)
[2019-07-01] MEDS: SODIUM CHLORIDE 0.9% 1,000 ML IV SCH ×2 (03:51→16:01)
[2019-07-01 07:35] LABS: Glucose,Whole Blood 115 mg/dL (75-99)
[2019-07-01] MEDS ORDERED: traMADol-ACETAMINOP 37.5-325MG 1 EACH TAB PO PRN (08:49)
[2019-07-01] MEDS ORDERED: IPRATROPIUM-ALBUTEROL 3 ML NEB INHALATION PRN (08:51)
--- NOTE | 2019-07-01 08:52 | P.HPIM ---
History of Present Illness H&P Date: 07/01/19 Patient is 79-year-old female with a PMH of type 2 diabetes mellitus, COPD, and hypertension who presented to the ED for altered mental status. The patient was a somewhat poor historian and does not know why she is at the hospital, though was able to name the hospital. No family available at the bedside. She endorsed mild epigastric and substernal chest discomfort, nonradiating, unable to quanti fy, 3 out of 10, with no alleviating or exacerbating features. She endorsed mild associated shortness of breath with some nausea. She was unable to say for how long she's been having these symptoms. Review of the patient's chart revealed the patient was seen in the emergency room the day prior after she accidentally took an extra dose of her baclofen. The patient was ultimately brought in earlier today by her due to her confusion. The patient denied headaches, weakness, numbness, tingling, palpitations, dizziness, fever, chills, vomiting, or diarrhea. She underwent an extensive evaluation in the emergency room with EKG showing normal sinus rhythm at 82 bpm with LVH criteria. Brain CT revealed a possible basilar artery tip aneurysm but was otherwise unremarkable. Chest x-ray was unremarkable and thoracic aorta computed tomography scan was negative. Laboratory evaluation revealed a WBC count of 11.6, troponin of 0.018, hemoglobin of 16.9, BUN 18, creatinine 0.9, calcium 10.5, total protein 8.5, with urine toxicology screen negative. Patient was admitted to the medicine service for altered mental status. Review of Systems Pertinent positives and negatives as discussed in HPI, a complete review of systems was performed and all other systems are negative. Past Medical History Past Medical History: COPD, Diabetes Mellitus, Eye Disorder, GERD/Reflux, Hypertension Additional Past Medical History / Comment(s): arthitis, hiatal hernia, blind in left eye History of Any Multi-Drug Resistant Organisms: None Reported Past Surgical History: Hysterectomy, Orthopedic Surgery Past Psychological History: No Psychological Hx Reported Smoking Status: Never smoker Past Alcohol Use History: None Reported Past Drug Use History: None Reported Medications and Allergies Home Medications Medication Instructions Recorded Confirmed Type DULoxetine HCL [Cymbalta] 30 mg PO DAILY 12/09/18 07/01/19 History Furosemide [Lasix] 40 mg PO DAILY 12/09/18 07/01/19 History cloNIDine HCL [Catapres] 0.1 mg PO DAILY 12/09/18 07/01/19 History traMADol-ACETAMINOP 37.5-325MG 1 tab PO Q4HR PRN 12/09/18 07/01/19 History [Ultracet] Aspirin 81 mg PO DAILY #30 chew 12/15/18 07/01/19 Rx Atorvastatin [Lipitor] 20 mg PO DAILY #30 tab 12/15/18 07/01/19 Rx Isosorbide Mononitrate ER [Imdur] 30 mg PO DAILY #30 tab.er.24h 12/15/18 07/01/19 Rx Albuterol Sulfate [Proair Hfa] 2 puff INHALATION RT-Q4H PRN 06/29/19 07/01/19 History Budesonide/Formoterol Fumarate 2 puff INHALATION RT-BID 06/29/19 07/01/19 History [Symbicort 160-4.5 Mcg Inhaler] Enalapril [Vasotec] 2.5 mg PO DAILY 06/29/19 07/01/19 History Gabapentin [Neurontin] 300 mg PO QID 06/29/19 07/01/19 History Lactulose 10 gm PO DAILY PRN 06/29/19 07/01/19 History glipiZIDE XL [Glucotrol Xl] 2.5 mg PO DAILY 06/29/19 07/01/19 History Baclofen [Lioresal] 10 mg PO TID PRN 07/01/19 07/01/19 History Allergies Allergy/AdvReac Type Severity Reaction Status Date / Time latex Allergy Unknown Verified 07/01/19 08:05 Penicillins Allergy Unknown Verified 07/01/19 08:05 Physical Exam Vitals: Vital Signs Temp Pulse Pulse Resp BP BP Pulse Ox 07/01/19 06:46 98.0 F 80 16 170/80 92 L 07/01/19 03:38 80 18 172/89 95 07/01/19 00:16 97.3 F L 80 20 168/98 96 Intake and Output 06/30/19 07/01/19 07/01/19 22:59 06:59 14:59 Other: Weight 55.338 kg General: non toxic, no distress, appears at stated age, normal weight Derm: no unusual rashes/lesions no unusual ecchymoses, warm, dry Head: atraumatic, normocephalic, symmetric Eyes: EOMI, no lid lag, anicteric sclera, pupils equal round reactive to light ENT: Nose and ears atraumatic, no thrush, no pharyngeal erythema Neck: No thyromegaly, no cervical lymphadenopathy, trachea midline, supple Mouth: no lip lesion, mucus membranes moist Cardiovascular: S1S2 reg, no murmur, positive posterior tibial pulse bilateral, no edema, capillary refill less than 2 seconds Lungs: CTA bilateral, no rhonchi, no rales , no accessory muscle use Abdominal: soft, nontender to palpation, no guarding, no appreciable organo megaly, normal bowel sounds Ext: no gross muscle atrophy, muscle strength 5 out of 5 in all 4 extremities grossly, no contractures Neuro: CN II-XI grossly intact, light touch intact all 4 extremities, finger to nose within normal limits Psych: Alert, awake, oriented to self and place, not oriented to time, appropriate affect Results CBC & Chem 7: 07/01/19 01:12 07/01/19 01:12 Labs: Abnormal Lab Results - Last 24 Hours (Table) 07/01/19 07/01/19 07/01/19 Range/Units 01:12 01:12 01:33 WBC 11.6 H (3.8-10.6) k/uL Hgb 16.9 H D (11.4-16.0) gm/dL Hct 49.4 H (34.0-46.0) % Neutrophils # 9.8 H (1.3-7.7) k/uL BUN 18 H (7-17) mg/dL Glucose 160 H (74-99) mg/dL POC Glucose (mg/dL) (75-99) mg/dL Calcium 10.5 H (8.4-10.2) mg/dL Alkaline Phosphatase 127 H (38-126) U/L Total Protein 8.5 H (6.3-8.2) g/dL Urine Protein 2+ H (Negative) Urine Glucose (UA) Trace H (Negative) Urine Ketones 1+ H (Negative) Urine Blood Trace H (Negative) Hyaline Casts 4 H (0-2) /lpf Urine Mucus Rare H (None) /hpf 07/01/19 Range/Units 07:34 WBC (3.8-10.6) k/uL Hgb (11.4-16.0) gm/dL Hct (34.0-46.0) % Neutrophils # (1.3-7.7) k/uL BUN (7-17) mg/dL Glucose (74-99) mg/dL POC Glucose (mg/dL) 115 H (75-99) mg/dL Calcium (8.4-10.2) mg/dL Alkaline Phosphatase (38-126) U/L Total Protein (6.3-8.2) g/dL Urine Protein (Negative) Urine Glucose (UA) (Negative) Urine Ketones (Negative) Urine Blood (Negative) Hyaline Casts (0-2) /lpf Urine Mucus (None) /hpf Assessment and Plan Plan: Altered mental status -Unknown etiology -Obtain collateral information from -UA and U Tox unremarkable -Fall and seizure precautions -Consider neurology evaluation if persists Chest pain, SOB, nausea -Troponin 0.018 -Continue to trend -Cardiac monitoring Type 2 DM -RENEA with FS HTN -C/w home meds COPD -C/w Symbicort with Duonebs prn DVT prophylaxis -Heparin The patient is admitted with an anticipated less than 2 midnight stay for evaluation of AMS CODE STATUS: Full Code Discussed with: Patient Anticipated discharge date: 1-[address]: Home A total of 40 minutes was spent on the care of this complex patient more than 50% of the time was spent in counseling and care coordination.
[2019-07-01] MEDS ORDERED: LISINOPRIL 5 MG TAB PO SCH (09:00)
[2019-07-01 11:20] LABS: Glucose,Whole Blood 117 mg/dL (75-99)
--- NOTE | 2019-07-01 11:53 | P.CRDCN ---
History of Present Illness Consult date: 07/01/19 Requesting physician: Karen Nava Reason for Consult (text): chest pain Chief complaint: altered mental status History of present illness: This is a pleasantly confused 79-year-old female patient of Dr. rDaper. The patient is a poor historian therefore most of the HPI and past medical history w as obtained from the chart. She has a history of COPD, type 2 diabetes, hypertension, GERD and hyperlipidemia. She was last seen in the office by Dr. Draper for a Lexiscan MPI in February of this year which came back to show no evidence of ischemia. She presented this admission brought in by her family for worsening confusion and altered mental status. 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 EKG on admission showed normal sinus rhythm with no ST-T wave changes compared to previous. We were asked to see the patient in consultation after the patient mentioned during exam by admitting physician that she's been experiencing intermittent episodes of chest discomfort, not activity related, no aggravating or relieving factors and no associated symptoms. Troponins have been negative 2. Upon examination, patient denies complaints at this time. Of note patient did have an ec hocardiogram with Doppler study done in December of this year which showed normal LV systolic function with an ejection fraction between 60-65% with mild MR and mild TR. Past Medical History Past Medical History: COPD, Diabetes Mellitus, Eye Disorder, GERD/Reflux, Hypertension Additional Past Medical History / Comment(s): arthitis, hiatal hernia, blind in left eye History of Any Multi-Drug Resistant Organisms: None Reported Past Surgical History: Hysterectomy, Orthopedic Surgery Past Psychological History: No Psychological Hx Reported Smoking Status: Never smoker Past Alcohol Use History: None Reported Past Drug Use History: None Reported Medications and Allergies Home Medications Medication Instructions Recorded Confirmed Type DULoxetine HCL [Cymbalta] 30 mg PO DAILY 12/09/18 07/01/19 History Furosemide [Lasix] 40 mg PO DAILY 12/09/18 07/01/19 History cloNIDine HCL [Catapres] 0.1 mg PO DAILY 12/09/18 07/01/19 History traMADol-ACETAMINOP 37.5-325MG 1 tab PO Q4HR PRN 12/09/18 07/01/19 History [Ultracet] Aspirin 81 mg PO DAILY #30 chew 12/15/18 07/01/19 Rx Atorvastatin [Lipitor] 20 mg PO DAILY #30 tab 12/15/18 07/01/19 Rx Isosorbide Mononitrate ER [Imdur] 30 mg PO DAILY #30 tab.er.24h 12/15/18 07/01/19 Rx Albuterol Sulfate [Proair Hfa] 2 puff INHALATION RT-Q4H PRN 06/29/19 07/01/19 History Budesonide/Formoterol Fumarate 2 puff INHALATION RT-BID 06/29/19 07/01/19 History [Symbicort 160-4.5 Mcg Inhaler] Enalapril [Vasotec] 2.5 mg PO DAILY 06/29/19 07/01/19 History Gabapentin [Neurontin] 300 mg PO QID 06/29/19 07/01/19 History Lactulose 10 gm PO DAILY PRN 06/29/19 07/01/19 History glipiZIDE XL [Glucotrol Xl] 2.5 mg PO DAILY 06/29/19 07/01/19 History Baclofen [Lioresal] 10 mg PO TID PRN 07/01/19 07/01/19 History Allergies Allergy/AdvReac Type Severity Reaction Status Date / Time latex Allergy Unknown Verified 07/01/19 08:05 Penicillins Allergy Unknown Verified 07/01/19 08:05 Physical Exam Vitals: Vital Signs Temp Pulse Pulse Resp BP BP Pulse Ox 07/01/19 08:00 80 16 07/01/19 06:46 98.0 F 80 16 170/80 92 L 07/01/19 03:38 80 18 172/89 95 07/01/19 00:16 97.3 F L 80 20 168/98 96 Intake and Output 06/30/19 07/01/19 07/01/19 22:59 06:59 14:59 Other: Voiding Method Toilet Weight 55.338 kg PHYSICAL EXAMINATION: HEENT: Head is atraumatic, normocephalic. Pupils equal, round. Neck is supple. There is no elevated jugular venous pressure. HEART EXAMINATION: Heart sounds regular, S1 and S2 with a systolic murmur. CHEST EXAMINATION: Lungs are clear to auscultation and precussion. No chest wall tenderness is noted on palpation or with deep breathing. ABDOMEN: Soft, nontender. Bowel sounds are heard. No organomegaly noted. EXTREMITIES: 2+ peripheral pulses with no evidence of peripheral edema and no calf tenderness noted. NEUROLOGIC patient is awake, alert and oriented x2 with memory loss and confusion noted. . Results 07/01/19 01:12 07/01/19 01:12 Cardiac Enzymes 07/01/19 07/01/19 07/01/19 Range/Units 01:12 01:12 09:07 AST 34 (14-36) U/L Troponin I 0.018 0.015 (0.000-0.034) ng/mL Coagulation 07/01/19 Range/Units 01:12 PT 9.8 (9.0-12.0) sec APTT 24.5 (22.0-30.0) sec CBC 07/01/19 Range/Units 01:12 WBC 11.6 H (3.8-10.6) k/uL RBC 5.29 (3.80-5.40) m/uL Hgb 16.9 H D (11.4-16.0) gm/dL Hct 49.4 H (34.0-46.0) % Plt Count 305 (150-450) k/uL Comprehensive Metabolic Panel 07/01/19 Range/Units 01:12 Sodium 141 (137-145) mmol/L Potassium 4.6 (3.5-5.1) mmol/L Chloride 106 (98-107) mmol/L Carbon Dioxide 24 (22-30) mmol/L BUN 18 H (7-17) mg/dL Creatinine 0.90 (0.52-1.04) mg/dL Glucose 160 H (74-99) mg/dL Calcium 10.5 H (8.4-10.2) mg/dL AST 34 (14-36) U/L ALT 29 (9-52) U/L Alkaline Phosphatase 127 H (38-126) U/L Total Protein 8.5 H (6.3-8.2) g/dL Albumin 5.0 (3.5-5.0) g/dL Current Medications Generic Name Dose Route Start Last Admin Trade Name Freq PRN Reason Stop Dose Admin Albuterol/Ipratropium 3 ml 07/01/19 08:51 Duoneb 0.5 Mg-3 Mg/3 Ml Soln INHALATION RT-QID PRN Shortness Of Breath Or Wheezing Aspirin 81 mg 07/01/19 09:00 Aspirin PO DAILY [facility] Atorvastatin Calcium 20 mg 07/01/19 09:00 Lipitor PO DAILY [facility] Budesonide/Formoterol Fumarate 2 puff 07/01/19 20:00 Symbicort 160-4.5 Mcg Inhaler INHALATION RT-BID [facility] Clonidine 0.1 mg 07/01/19 09:00 Catapres PO DAILY [facility] Furosemide 40 mg 07/01/19 09:00 Lasix PO DAILY [facility] Heparin Sodium (Porcine) 5,000 unit 07/01/19 16:00 Heparin SQ Q8HR [facility] Sodium Chloride 1,000 mls @ 80 mls/hr 07/01/19 03:45 07/01/19 03:51 Saline 0.9% IV 80 mls/hr .[id number] [facility] Administration Insulin Aspart 0 unit 07/01/19 12:30 Novolog SQ ACHS [facility] Protocol Isosorbide Mononitrate 30 mg 07/01/19 09:00 Imdur PO DAILY [facility] Lisinopril 5 mg 07/01/19 09:00 Zestril PO DAILY [facility] Naloxone HCl 0.2 mg 07/01/19 03:34 Narcan IV Q2M PRN Opioid Reversal Tramadol/Acetaminophen 1 each 07/01/19 08:49 Ultracet PO Q4HR PRN Moderate Pain Intake and Output 06/30/19 07/01/19 07/01/19 22:59 06:59 14:59 Other: Voiding Method Toilet Weight 55.338 kg 07/01/19 01:12 07/01/19 01:12 Assessment and Plan Assessment: #1 atypical chest pain, likely not cardiac in nature, no ischemic changes noted on EKG and negative Lexiscan MPI done in February of this year #2 altered mental status #3 hypertension #4 hyperlipidemia #5 diabetes mellitus Plan: From cardiology's perspective, we will obtain 2-D echo with Doppler to assess cardiac structure and function. Medications were reviewed and we will continue the same. We will follow-up on the echocardiogram. Further recommendations to follow. [employer] note has been reviewed, I agree with a documented findings and plan of care. Patient was seen and examined.
[2019-07-01] MEDS: INSULIN ASPART (NovoLOG) 100 UNIT/ML VIAL SQ SCH ×3 (12:05→20:49)
[2019-07-01] MEDS: ATORVASTATIN 20 MG TAB PO SCH (12:11)
[2019-07-01] MEDS: ISOSORBIDE MONONITRATE ER 30 MG TAB.ER.24H PO SCH (12:12)
[2019-07-01] MEDS: cloNIDine HCL 0.1 MG TAB PO SCH (12:12)
[2019-07-01] MEDS: ASPIRIN 81 MG PO SCH (12:12)
[2019-07-01] MEDS: FUROSEMIDE 40 MG TAB PO SCH (12:12)
[2019-07-01 12:43] VITALS: BMI 23.8
[2019-07-01] MEDS ORDERED: SULFAMETHOX-TMP 400-80MG 1 EACH TAB PO STA (15:24)
[2019-07-01] MEDS: HEPARIN SODIUM,PORCINE 5,000 UNIT/ML 1 ML VIAL SQ SCH ×2 (16:01→23:40)
--- NOTE | 2019-07-01 16:06 | P.PN ---
Progress Note - Text Progress Note Date: 07/01/19 Briefly this is a 79-year-old female with a past medical history of of COPD, type 2 diabetes, hypertension, GERD and hyperlipidemia that presented with confusion and was admitted for likely metabolic encephalopathy. 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 EKG showed no ST-T wave changes CTA showed mild atherosclerotic vascular disease, mild atrophy of the left kidney compared to the right. Neurology was consulted to see the patient awaiting recommendations, on my evaluation the patient was awake alert oriented to self and place, she had noted bilateral lower extremity erythema that was tender to touch. The patient was continued on therapy from admission and had Bactrim added for suspicion of bilateral lower extremity cellulitis
[2019-07-01 17:26] LABS: Glucose,Whole Blood 113 mg/dL (75-99)
[2019-07-01] MEDS: SYMBICORT 160-4.5 MCG INHALER INHALATION SCH (19:34)
[2019-07-01] MEDS: SULFAMETHOX-TMP 800-160MG 1 EACH TAB PO SCH (20:33)
[2019-07-01] MEDS: LISINOPRIL 5 MG TAB PO SCH (20:33)
[2019-07-01 20:43] LABS: Glucose,Whole Blood 140 mg/dL (75-99)
[2019-07-02] MEDS: SODIUM CHLORIDE 0.9% 1,000 ML IV SCH ×2 (03:47→15:36)
[2019-07-02 07:13] LABS: Glucose,Whole Blood 94 mg/dL (75-99)
[2019-07-02 07:35] LABS: Basophils % (A) 1 %; Eosinophils # (A) 0.3 k/uL (0-0.7); Eosinophils % (A) 4 %; HCT 41.2 % (34.0-46.0); Lymphocytes # (A) 1.6 k/uL (1.0-4.8); Lymphocytes % (A) 21 %; MCH 31.3 pg (25.0-35.0); MCHC 33.6 g/dL (31.0-37.0); MCV 93.3 fL (80.0-100.0); Mean Platelet Volume 6.2; Monocytes # (A) 0.5 k/uL (0-1.0); Monocytes % (A) 6 %; Neutrophils % (A) 67 %; Platelet Count 245 k/uL (150-450); RBC 4.42 m/uL (3.80-5.40); RDW 13.1 % (11.5-15.5); WBC 7.5 k/uL (3.8-10.6)
[2019-07-02 07:37] LABS: Calcium 8.6 mg/dL (8.4-10.2)
[2019-07-02 07:38] LABS: HGB 13.8 gm/dL (11.4-16.0); Potassium 4.7 mmol/L (3.5-5.1)
[2019-07-02] MEDS: INSULIN ASPART (NovoLOG) 100 UNIT/ML VIAL SQ SCH ×4 (07:49→20:41)
[2019-07-02] MEDS: SYMBICORT 160-4.5 MCG INHALER INHALATION SCH ×2 (08:04→19:41)
[2019-07-02] MEDS: cloNIDine HCL 0.1 MG TAB PO SCH (09:35)
[2019-07-02] MEDS: HEPARIN SODIUM,PORCINE 5,000 UNIT/ML 1 ML VIAL SQ SCH ×3 (09:35→23:19)
[2019-07-02] MEDS: LISINOPRIL 5 MG TAB PO SCH (09:35)
[2019-07-02] MEDS: SULFAMETHOX-TMP 800-160MG 1 EACH TAB PO SCH ×2 (09:35→20:41)
[2019-07-02] MEDS: ASPIRIN 81 MG PO SCH (09:35)
[2019-07-02] MEDS: ISOSORBIDE MONONITRATE ER 30 MG TAB.ER.24H PO SCH (09:35)
[2019-07-02] MEDS: ATORVASTATIN 20 MG TAB PO SCH (09:35)
[2019-07-02] MEDS: FUROSEMIDE 40 MG TAB PO SCH (09:35)
--- NOTE | 2019-07-02 10:25 | P.PN ---
Subjective Progress Note Date: 07/02/19 This is a pleasantly confused 79-year-old female patient of Dr. Quezada. The patient is a poor historian therefore most of the HPI and past medical history was obtained from the chart. She has a history of COPD, type 2 diabetes, hypertension, GERD and hyperlipidemia. She was last seen in the office by Dr. Draper for a Lexiscan MPI in February of this year which came back to show no evidence of ischemia. She presented this admission brought in by her family for worsening confusion and altered mental status. 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 EKG on admission showed normal sinus rhythm with no ST-T wave changes compared to previous. We were asked to see the patient in consultation after the patient mentioned during exam by admitting physician that she's been experiencing intermittent episodes of chest discomfort, not activity related, no aggravating or relieving factors and no associated symptoms. Troponins have been negative 2. Upon examination, patient denies complaints at this time. Of note patient did have an echocardiogram with Doppler study done in December of this year which showed normal LV systolic function with an ejection fraction between 60-65% with mild MR and mild TR. 07/02/19 Patient was seen and examined resting comfortably in bed. She complains of l ower leg redness and tenderness and has been started on Bactrim for possible cellulitis. Continues to complain of occasional shortness of breath and atypical chest discomfort that is random in occurrence not related to exertion with no relieving or aggravating factors and no associated symptoms. Labs this morning showed a normal CBC, BUN of 18 and creatinine 0.9. Objective - Vital Signs Vital signs: Vital Signs Temp 98.5 F 07/02/19 05:31 Pulse 70 07/02/19 05:31 Resp 18 07/02/19 05:31 BP 152/81 07/02/19 05:31 Pulse Ox 93 L 07/02/19 05:31 Intake & Output 1107/02/19 07/02/19 18:59 06:59 18:59 Intake Total 240 1080 Balance 240 1080 Intake: Intake, IV Titration 960 Amount Sodium Chloride 0.9% 1, 960 000 ml @ 80 mls/hr IV . [id number] [facility]IE[facility] Rx#:[id number] Oral 240 120 Other: Voiding Method Toilet Toilet # Voids 2 1 - Exam PHYSICAL EXAMINATION: HEENT: Head is atraumatic, normocephalic. Pupils equal, round. Neck is supple. There is no elevated jugular venous pressure. Hard of hearing. HEART EXAMINATION: Heart sounds regular, S1 and S2 with a systolic murmur. CHEST EXAMINATION: Lungs are clear to auscultation and precussion. No chest wall tenderness is noted on palpation or with deep breathing. ABDOMEN: Soft, nontender. Bowel sounds are heard. No organomegaly noted. EXTREMITIES: 2+ peripheral pulses with no evidence of peripheral edema. Mild erythema and pain with palpation noted to bilateral lower legs. NEUROLOGIC patient is awake, alert and oriented x2 with memory loss and confusion noted. - Labs CBC & Chem 7: 07/02/19 06:55 07/02/19 06:55 Labs: Abnormal Lab Results - Last 24 Hours (Table) 07/01/19 07/01/19 07/01/19 Range/Units 11:18 17:21 20:42 Chloride (98-107) mmol/L BUN (7-17) mg/dL POC Glucose (mg/dL) 117 H 113 H 140 H (75-99) mg/dL 07/02/19 Range/Units 06:55 Chloride 110 H (98-107) mmol/L BUN 18 H (7-17) mg/dL POC Glucose (mg/dL) (75-99) mg/dL Assessment and Plan Assessment: #1 atypical chest pain, likely not cardiac in nature, no ischemic changes noted on EKG and negative Lexiscan MPI done in February of this year #2 altered mental status #3 hypertension #4 hyperlipidemia #5 diabetes mellitus #6 cellulitis Plan: From cardiology's perspective, medications were reviewed and will continue the same. From our standpoint, patient may be discharged home and follow-up in the office with Dr Quezada. [employer] note has been reviewed, I agree with a documented findings and plan of care. Patient was seen and examined.
--- NOTE | 2019-07-02 11:45 | P.PN ---
Subjective Progress Note Date: 07/02/19 Patient seen and examined at bedside, according to nurse patient a and O 2 unsure what her baseline is, patient has been eating half to full meals and has been up and ambulatory to the restroom and back.nursing reporting resolving redness in her lower extremities. Patient having episodes of atypical chest pain and occasional episodes of shortness of breath. Her blood pressure continues to be elevated this morning and on increasing recheck 152/102 Objective - Vital Signs Vital signs: Vital Signs Temp 98.5 F 07/02/19 05:31 Pulse 70 07/02/19 05:31 Resp 18 07/02/19 05:31 BP 152/81 07/02/19 05:31 Pulse Ox 93 L 07/02/19 05:31 Intake & Output 07/01/19 07/02/19 07/02/19 18:59 06:59 18:59 Intake Total 240 1080 Balance 240 1080 Intake: Intake, IV Titration 960 Amount Sodium Chloride 0.9% 1, 960 000 ml @ 80 mls/hr IV . [id number] [facility] Rx#:[id number] Oral 240 120 Other: Voiding Method Toilet Toilet # Voids 2 1 - Exam Constitutional: No acute distress, conversant, pleasant Eyes: Anicteric sclerae, moist conjunctiva, no lid-lag, PERRLA ENMT: NC/AT,Oropharynx clear, no erythema, exudates Neck:Supple, FROM, no masses, or JVD, No carotid bruits; No thyromegaly Lungs: Clear to auscultation, Clear to percussion, Normal respiratory effort, no accessory muscle use Cardiovascular: Heart regular in rate and rhythm, No murmurs, gallops, or rubs no peripheral edema Abdominal: Soft Nontender, nom distended, no guarding, no rebound or rigidity, Normoactive bowel sounds No hepatomegaly, No splenomegaly, No palpable mass No abdominal wall hernia noted Skin: Resolving erythema bilateral lower extremities that is warm to touch, minimal induration Extremities:No digital cyanosis No clubbing, Pedal pulses intact and symmetrical Radial pulses intact and symmetrical Normal gait and station, No calf tenderness Psychiatric: Alert and oriented to person, place, Appropriate affect Intact judgement Neuro: Muscles Strength 5/5 in all 4 extremities, Sensation to light touch grossly present throughout, Cranial nerves II-XII grossly intact. 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 no evidence of cerebral infarction or hemorrhage * Likely secondary to medications versus infection due to cellulitis Atypical chest pain * Troponin was negative at 0.015, EKG showed sinus mechanism without suggestion of acute ischemia * Patient had a Lexiscan in February of this year that was negative for evidence of ischemia, echocardiogram from December 25 showed normal preserved LV EF 60-65% with mild MR and TR * Thoracic CT showed mild atherosclerotic vascular disease no aneurysm or dissection Type 2 diabetes with hyperglycemia * Blood sugars are well controlled today's FBS 94 * Continue correctional scale coverage Essential hypertension * Blood pressure elevated this morning prior to a.m. meds and on recheck * We'll titrate up her Imdur to 60 mg daily and lisinopril to 10 mg twice a day Bilateral lower extremity cellulitis * Initiated on antibiotic therapy with Bactrim yesterday Disposition * Approaching discharge goals of cardiology signed off on her however blood pr essure continues to be elevated but think she would need improved blood pressure control * We will recheck blood pressure and labs after titrating up her medications
[2019-07-02 11:47] LABS: Glucose,Whole Blood 105 mg/dL (75-99)
[2019-07-02] MEDS ORDERED: ISOSORBIDE MONONITRATE ER 30 MG TAB.ER.24H PO STA (11:51)
[2019-07-02 17:17] LABS: Glucose,Whole Blood 117 mg/dL (75-99)
[2019-07-02 20:33] LABS: Glucose,Whole Blood 163 mg/dL (75-99)
[2019-07-02] MEDS: LISINOPRIL 10 MG TAB PO SCH (20:41)
[2019-07-03] MEDS: SODIUM CHLORIDE 0.9% 1,000 ML IV SCH ×2 (05:50→18:13)
[2019-07-03 07:07] LABS: Glucose,Whole Blood 107 mg/dL (75-99)
[2019-07-03] MEDS: SYMBICORT 160-4.5 MCG INHALER INHALATION SCH ×2 (07:23→19:18)
[2019-07-03] MEDS: FUROSEMIDE 40 MG TAB PO SCH (07:53)
[2019-07-03] MEDS: ISOSORBIDE MONONITRATE ER 60 MG TAB.ER.24H PO SCH (07:53)
[2019-07-03] MEDS: HEPARIN SODIUM,PORCINE 5,000 UNIT/ML 1 ML VIAL SQ SCH ×2 (07:53→15:28)
[2019-07-03] MEDS: LISINOPRIL 10 MG TAB PO SCH ×2 (07:53→20:08)
[2019-07-03] MEDS: SULFAMETHOX-TMP 800-160MG 1 EACH TAB PO SCH ×2 (07:53→21:06)
[2019-07-03] MEDS: cloNIDine HCL 0.1 MG TAB PO SCH (07:54)
[2019-07-03] MEDS: INSULIN ASPART (NovoLOG) 100 UNIT/ML VIAL SQ SCH ×4 (07:54→20:08)
[2019-07-03] MEDS: ATORVASTATIN 20 MG TAB PO SCH (07:54)
[2019-07-03] MEDS: ASPIRIN 81 MG PO SCH (07:54)
[2019-07-03 09:26] LABS: Basophils % (A) 0 %; Eosinophils # (A) 0.2 k/uL (0-0.7); Eosinophils % (A) 2 %; HCT 43.1 % (34.0-46.0); HGB 14.6 gm/dL (11.4-16.0); Lymphocytes # (A) 1.2 k/uL (1.0-4.8); Lymphocytes % (A) 15 %; MCH 31.3 pg (25.0-35.0); MCHC 33.9 g/dL (31.0-37.0); MCV 92.4 fL (80.0-100.0); Mean Platelet Volume 5.8; Monocytes # (A) 0.4 k/uL (0-1.0); Monocytes % (A) 5 %; Neutrophils # (A) 6.4 k/uL (1.3-7.7); Neutrophils % (A) 77 %; Platelet Count 286 k/uL (150-450); RBC 4.67 m/uL (3.80-5.40); RDW 13.2 % (11.5-15.5); WBC 8.3 k/uL (3.8-10.6)
[2019-07-03 09:52] LABS: Calcium 9.7 mg/dL (8.4-10.2)
[2019-07-03 11:28] LABS: Glucose,Whole Blood 92 mg/dL (75-99)
--- NOTE | 2019-07-03 12:47 | P.CNNES ---
History of Present Illness Consult date: 07/03/19 Reason for Consult: AMS Chief complaint: AMS History of Present Illness: HISTORY OF PRESENT ILLNESS: Thank you for allowing me to evaluate Ms. Elma Jain. Ms. Jain is a 79 year-old woman with PMHx of COPD, DM, GERD, HTN, arthritis, hiatal hernia, L eye blindness, who presented to [facility] for altered mental status. Patient had come to the hospital after having taken to many also relaxers, and patient was discharged from the hospital on 06/30/2019. However, on the day of patient's presentation, has been found patient somewhat confused. Daughter is at bedside. Daughter states that patient has been doing better since she came back to the hospital in terms of her mental status, but she's worried about the CT Head findings of an aneurysm. Patient has been complaining of headache for several months, in the R occipital region, and patient is able to point at the exact location of her headache although she does report that she sometimes has headaches in the R frontal area. Denies blurry/double vision, nausea, vomiting, photophobia, phonophobia. Patient had previously fallen on the back of her head, in the area that her headache is. Patient states the headache is intermittent, lasts about 5-10 minutes, right now about 5/10 pain. Denies any weakness or numbness, but she's been having neuropathy with [id number] sensation for years for which she takes gabapentin. PAST MEDICAL HISTORY: COPD, DM, GERD, HTN, arthritis, hiatal hernia, L eye blindness PAST SURGICAL HISTORY: Hyseterecomy, orthopedic surgery HOME MEDICATIONS: Clonidine, Tramadol. Furosemide, Duloxetine, ASA, Isosorbide, Atorvasatin, Ga bapentin 300mg QID, Glipizide 2.5 mg PO qday, Symbicort, Albuterol, Enalapril, Lactulose, Baclofen ALLERGIES: Latex Penicillins SOCIAL HISTORY: Never smoker. REVIEW OF SYSTEMS: The 14 systems are reviewed and no additional points are identified compared to the review of systems documented history and physical PHYSICAL EXAMINATION: VITAL SIGNS: T 98.2 HR 68 RR 16 BP 152/84 O2 sat 93% on RA GEN.: NAD, pleasant and cooperative HEENT: NCAT, sclera without icterus NECK: Supple, no carotid bruit SKIN AND EXTREMITIES: Warm to touch, no edema NEURO: MENTAL STATUS: Patient alert and oriented to self, place, time. Able to name the current president. Speech fluent, able to name and repeat, following all commands readily. No right and left disorientation, neglect. CRANIAL NERVES II THROUGH XII: II: Pupils are equal and reactive to light symmetrically. No afferent pupillary defect. Visual werner are intact. III, IV, : No ptosis. Extraocular movements full. No nystagmus. V: Facial sensation intact from V1-3. VII. No clear facial asymmetry. VIII: Hearing intact to finger rub bilaterally. IX, X: Symmetric palate elevation. XI: Shoulder shrug intact. XII: Tongue midline without fasciculation or atrophy. MOTOR: Normal bulk/tone. No pronator drift or tremor. Strength is 5/5 throughout all 4 extremities. Patient with significant [id number] pain in her legs that lightly pressured touch causes significant pain. SENSORY: Intact to light touch in all 4 extremities. REFLEXES: 2+ throughout. Toes are downgoing. COORDINATION: Finger to nose and heel to smith intact. No dysmetria. GAIT: Narrow-based and stable. 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 No evidence of cerebral infarct or hemorrhage. Brain not change compared to last exam. EKG 07/01/19: Normal SR Chest X-ray 07/01/19: Chronic elevated R diaphragm. 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 Patients headache not likely to be caused by the basilar tip aneurysm found on CT Head. In order to get a better idea of the size of aneurysm, will obtain CTA Head w/ and w/o contrast. For her headache, we can first try tylenol, which should not be used for than 3-4 times a week as it can cause rebound headache. Indomethacin can be tried as well, but should be tried in outpatient setting where patient can be better followd. RECOMMENDATIONS: 1. CTA Head w/ and w/o contrast 2. Tylenol PRN for headaches 3. Patient needs to follow up with outpatient neurologist within 1-2 weeks of discharge 4. Patient should be able to get discharged today, but CTA Head needs to be reviewed first. Will notify Dr. Herrera after CTA Head obtained. Past Medical History Past Medical History: COPD, Diabetes Mellitus, Eye Disorder, GERD/Reflux, Hypertension Additional Past Medical History / Comment(s): arthitis, hiatal hernia, blind in left eye History of Any Multi-Drug Resistant Organisms: None Reported Past Surgical History: Hysterectomy, Orthopedic Surgery Past Psychological History: No Psychological Hx Reported Smoking Status: Never smoker Past Alcohol Use History: None Reported Past Drug Use History: None Reported Medications and Allergies Home Medications Medication Instructions Recorded Confirmed Type DULoxetine HCL [Cymbalta] 30 mg PO DAILY 12/09/18 07/01/19 History Furosemide [Lasix] 40 mg PO DAILY 12/09/18 07/01/19 History cloNIDine HCL [Catapres] 0.1 mg PO DAILY 12/09/18 07/01/19 History traMADol-ACETAMINOP 37.5-325MG 1 tab PO Q4HR PRN 12/09/18 07/01/19 History [Ultracet] Aspirin 81 mg PO DAILY #30 chew 12/15/18 07/01/19 Rx Atorvastatin [Lipitor] 20 mg PO DAILY #30 tab 12/15/18 07/01/19 Rx Isosorbide Mononitrate ER [Imdur] 30 mg PO DAILY #30 tab.er.24h 12/15/18 07/01/19 Rx Albuterol Sulfate [Proair Hfa] 2 puff INHALATION RT-Q4H PRN 06/29/19 07/01/19 History Budesonide/Formoterol Fumarate 2 puff INHALATION RT-BID 06/29/19 07/01/19 History [Symbicort 160-4.5 Mcg Inhaler] Enalapril [Vasotec] 2.5 mg PO DAILY 06/29/19 07/01/19 History Gabapentin [Neurontin] 300 mg PO QID 06/29/19 07/01/19 History Lactulose 10 gm PO DAILY PRN 06/29/19 07/01/19 History glipiZIDE XL [Glucotrol Xl] 2.5 mg PO DAILY 06/29/19 07/01/19 History Baclofen [Lioresal] 10 mg PO TID PRN 07/01/19 07/01/19 History Allergies Allergy/AdvReac Type Severity Reaction Status Date / Time latex Allergy Unknown Verified 07/01/19 08:05 Penicillins Allergy Unknown Verified 07/01/19 08:05 Physical Examination - Vital Signs Vital Signs: Vital Signs Temp Pulse Resp BP Pulse Ox 07/03/19 05:32 98.2 F 68 16 152/84 93 L 07/02/19 20:25 98.5 F 68 16 135/74 95 07/02/19 19:41 93 L 07/02/19 15:06 64 16 07/02/19 13:29 97.6 F 63 16 129/76 94 L Intake and Output 07/02/19 07/03/19 07/03/19 22:59 06:59 14:59 Other: Voiding Method Toilet Toilet Toilet # Voids 1 3 # Bowel Movements 0 Results - Laboratory Findings CBC and BMP: 07/03/19 08:51 07/03/19 08:51 Abnormal Lab Findings: Abnormal Labs 07/01/19 07/01/19 07/01/19 01:12 01:12 01:33 WBC 11.6 H Hgb 16.9 H D Hct 49.4 H Neutrophils # 9.8 H Chloride BUN 18 H Glucose 160 H POC Glucose (mg/dL) Calcium 10.5 H Alkaline Phosphatase 127 H Total Protein 8.5 H Urine Protein 2+ H Urine Glucose (UA) Trace H Urine Ketones 1+ H Urine Blood Trace H Hyaline Casts 4 H Urine Mucus Rare H 07/01/19 07/01/19 07/01/19 07:34 11:18 17:21 WBC Hgb Hct Neutrophils # Chloride BUN Glucose POC Glucose (mg/dL) 115 H 117 H 113 H Calcium Alkaline Phosphatase Total Protein Urine Protein Urine Glucose (UA) Urine Ketones Urine Blood Hyaline Casts Urine Mucus 07/01/19 07/02/19 07/02/19 20:42 06:55 11:33 WBC Hgb Hct Neutrophils # Chloride 110 H BUN 18 H Glucose POC Glucose (mg/dL) 140 H 105 H Calcium Alkaline Phosphatase Total Protein Urine Protein Urine Glucose (UA) Urine Ketones Urine Blood Hyaline Casts Urine Mucus 07/02/19 07/02/19 07/03/19 17:07 20:28 07:06 WBC Hgb Hct Neutrophils # Chloride BUN Glucose POC Glucose (mg/dL) 117 H 163 H 107 H Calcium Alkaline Phosphatase Total Protein Urine Protein Urine Glucose (UA) Urine Ketones Urine Blood Hyaline Casts Urine Mucus
[2019-07-03] MEDS ORDERED: METOPROLOL TARTRATE 12.5 MG TAB PO STA (13:56)
--- NOTE | 2019-07-03 16:24 | P.PN ---
Subjective Progress Note Date: 07/03/19 Patient seen and examined at bedside, according to nurse patient a and O 2 unsure what her baseline is, patient has been eating half to full meals and has been up and ambulatory to the restroom and back.nursing reporting resolving redness in her lower extremities. The patient's daughter at bedside reporting that the patient is largely returned to her baseline except for issues with memory. Patient also reports intermittent headaches that has been going on since her fall she hit her head several months ago. Blood pressure elevated this morning and on recheck Objective - Vital Signs Vital signs: Vital Signs Temp 97.2 F L 07/03/19 12:30 Pulse 69 07/03/19 12:30 Resp 17 07/03/19 12:30 BP 113/70 07/03/19 12:30 Pulse Ox 94 L 07/03/19 12:30 Intake & Output 07/02/19 07/03/19 07/03/19 18:59 06:59 18:59 Intake Total 1260 Balance 1260 Intake: Intake, IV Titration 400 Amount Sodium Chloride 0.9% 1, 400 000 ml @ 80 mls/hr IV . [id number] [facility] Rx#:[id number] Oral 860 Other: Voiding Method Toilet Toilet Toilet # Voids 4 3 5 # Bowel Movements 0 1 - Exam Constitutional: No acute distress, conversant, pleasant Eyes: Anicteric sclerae, moist conjunctiva, no lid-lag, PERRLA ENMT: NC/AT,Oropharynx clear, no erythema, exudates Neck:Supple, FROM, no masses, or JVD, No carotid bruits; No thyromegaly Lungs: Clear to auscultation, Clear to percussion, Normal respiratory effort, no accessory muscle use Cardiovascular: Heart regular in rate and rhythm, No murmurs, gallops, or rubs no peripheral edema Abdominal: Soft Nontender, nom distended, no guarding, no rebound or rigidity, Normoactive bowel sounds No hepatomegaly, No splenomegaly, No palpable mass No abdominal wall hernia noted Skin: Resolving erythema bilateral lower extremities that is warm to touch, minimal induration Extremities:No digital cyanosis No clubbing, Pedal pulses intact and symmetrical Radial pulses intact and symmetrical Normal gait and station, No calf tenderness Psychiatric: Alert and oriented to person, place, Appropriate affect Intact judgement Neuro: Muscles Strength 5/5 in all 4 extremities, Sensation to light touch grossly present throughout, Cranial nerves II-XII grossly intact. 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 no evidence of ce rebral infarction or hemorrhage * Likely secondary to medications previous to taking ( baclofen)versus infection due to cellulitis * Neurology recommending MRA of the head will follow up results Atypical chest pain * Troponin was negative at 0.015, EKG showed sinus mechanism without suggestion of acute ischemia * Patient had a Lexiscan in February of this year that was negative for evidence of ischemia, echocardiogram from December 25 showed normal preserved LV EF 60-65% with mild MR and TR * Thoracic CT showed mild atherosclerotic vascular disease no aneurysm or dissection Type 2 diabetes with hyperglycemia * Blood sugars are well controlled today's FBS 94 * Continue correctional scale coverage Essential hypertension * Blood pressure elevated this morning prior to a.m. meds and on recheck * Continue clonidine 0.1 mg daily Imdur to 60 mg daily and lisinopril to 10 mg twice a day and metoprolol 12.5 twice a day Bilateral lower extremity cellulitis * Initiated on antibiotic therapy with Bactrim yesterday Disposition * Approaching discharge goals of cardiology signed off on her however blood pressure continues to be elevated but think she would need improved blood pressure control * We will recheck blood pressure and labs after titrating up her medications
[2019-07-03 17:29] LABS: Glucose,Whole Blood 153 mg/dL (75-99)
[2019-07-03 19:47] LABS: Glucose,Whole Blood 189 mg/dL (75-99)
[2019-07-03] MEDS: METOPROLOL TARTRATE 12.5 MG TAB PO SCH (20:08)
[2019-07-03 20:51] VITALS: RESP 16
[2019-07-04] MEDS ORDERED: HEPARIN SODIUM,PORCINE 5,000 UNIT/ML 1 ML VIAL ONE
[2019-07-04] MEDS: HEPARIN SODIUM,PORCINE 5,000 UNIT/ML 1 ML VIAL SQ SCH ×2 (05:40→08:07)
[2019-07-04 07:09] LABS: Glucose,Whole Blood 97 mg/dL (75-99)
[2019-07-04] MEDS: INSULIN ASPART (NovoLOG) 100 UNIT/ML VIAL SQ SCH ×2 (07:53→12:18)
[2019-07-04] MEDS: SODIUM CHLORIDE 0.9% 1,000 ML IV SCH (07:53)
[2019-07-04] MEDS: LISINOPRIL 10 MG TAB PO SCH (08:08)
[2019-07-04] MEDS: ISOSORBIDE MONONITRATE ER 60 MG TAB.ER.24H PO SCH (08:08)
[2019-07-04] MEDS: SULFAMETHOX-TMP 800-160MG 1 EACH TAB PO SCH (08:08)
[2019-07-04] MEDS: ATORVASTATIN 20 MG TAB PO SCH (08:08)
[2019-07-04] MEDS: METOPROLOL TARTRATE 12.5 MG TAB PO SCH (08:08)
[2019-07-04] MEDS: cloNIDine HCL 0.1 MG TAB PO SCH (08:09)
[2019-07-04] MEDS: FUROSEMIDE 40 MG TAB PO SCH (08:09)
[2019-07-04] MEDS: ASPIRIN 81 MG PO SCH (08:09)
[2019-07-04] MEDS: SYMBICORT 160-4.5 MCG INHALER INHALATION SCH (08:43)
--- NOTE | 2019-07-04 10:11 | MR ---
EXAMINATION TYPE: MR angio head wo con DATE OF EXAM: 07/04/2019 COMPARISON: CT brain dated 07/01/2019 HISTORY: CT Head showing basilar tip aneurysm TECHNIQUE: Time of flight images focusing on the [place] were performed without contrast. Th ree-dimensional reconstructions on an alternate workstation. FINDINGS: Anterior and posterior circulation are patent. There is no evident dissection, embolus, or aneurysm. Prominence of the basilar tip corresponds to the findings seen on CT. Some atheromatous manju nges present within the siphon of the internal carotid arteries. IMPRESSION: No evident aneurysm.
[2019-07-04 10:28] LABS: Calcium 9.5 mg/dL (8.4-10.2); Potassium 4.2 mmol/L (3.5-5.1)
[2019-07-04 11:34] LABS: Glucose,Whole Blood 111 mg/dL (75-99)
--- NOTE | 2019-07-04 11:46 | P.PN ---
Progress Note - Text Progress Note Date: 07/04/19 SUBJECTIVE/INTERVAL EVENTS: No acute overnight events. Patient with no complaints. Excited to go home today. PHYSICAL EXAMINATION: VITAL SIGNS: T 98.0 HR 64 RR 16 BP 129/73 O2 sat 91% on standby O2 GEN.: NAD, pleasant and cooperative HEENT: NCAT, sclera without icterus NECK: Supple, no carotid bruit SKIN AND EXTREMITIES: Warm to touch, no edema NEURO: MENTAL STATUS: Patient alert and oriented to self, place, time. Able to name the current president. Speech fluent, able to name and repeat, following all commands readily. No right and left disorientation, neglect. CRANIAL NERVES II THROUGH XII: II: Pupils are equal and reactive to light sym metrically. No afferent pupillary defect. Visual werner are intact. III, IV, : No ptosis. Extraocular movements full. No nystagmus. V: Facial sensation intact from V1-3. VII. No clear facial asymmetry. VIII: Hearing intact to finger rub bilaterally. IX, X: Symmetric palate elevation. XI: Shoulder shrug intact. XII: Tongue midline without fasciculation or atrophy. MOTOR: Normal bulk/tone. No pronator drift or tremor. Strength is 5/5 throughout all 4 extremities. Patient with significant [id number] pain in her legs that lightly pressured touch causes significant pain. SENSORY: Intact to light touch in all 4 extremities. REFLEXES: 2+ throughout. Toes are downgoing. COORDINATION: Finger to nose and heel to smith intact. No dysmetria. GAIT: Narrow-based and stable. DIAGNOSTIC TESTING: LABORATORY: WBC 8.3 hemoglobin 14.6 platelet 286 glucose 107 sodium 139 potassium 4.7 chloride 110 bicarb 23 BUN 18 creatinine 0.9 AST 34 ALT 29 alk phos 127 urinalysis negative IMAGING: MRA Head w/o contrast 07/04/19: No evident aneurysm. 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 No evidence of cerebral infarct or he morrhage. Brain not change compared to last exam. EKG 07/01/19: Normal SR Chest X-ray 07/01/19: Chronic elevated R diaphragm. 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 Patients headache not likely to be caused by the basilar tip aneurysm found on CT Head. In order to get a better idea of the size of aneurysm, MRA head obtained instead of CTA due to patient's renal function. For her headache, we can first try tylenol, which should not be used for than 3-4 times a week as it can cause rebound headache. Indomethacin can be tried as well, but should be tried in outpatient setting where patient can be better followd. RECOMMENDATIONS: 1. MRA Head w/ and w/o contrast with no evident aneurysm. 2. Tylenol PRN for headaches 3. No follow with outpatient neurologist needed at this time. 4. Neurology will sign off at this time. Please feel free to contact Neurology again if with additional questions or concerns.
[2019-07-04 12:25] VITALS: BP 95/52; PULSE 60; TEMP 97
[2019-07-04] MEDS ORDERED: CEPHALEXIN 500 MG CAP PO SCH (12:45)
--- NOTE | 2019-07-04 20:53 | P.DS ---
Providers Date of admission: 07/01/19 05:22 Expected date of discharge: 07/04/19 Attending physician: Karen Nava MD Consults: 07/01/19 08:46 Consult Physician Urgent Consulting Provider: Magdy Quezada Consult Reason/Comments: chest pain Do you want consulting provider notified?: Yes 07/01/19 11:20 Consult Physician Routine Consulting Provider: Elyse Burt Consult Reason/Comments: Altered mental status Do you want consulting provider notified?: Yes Primary care physician: Hu Crawford Hospital Course: Discharge Diagnosis: Toxic metabolic encephalopathy suspect secondary to polypharmacy. Baclofen and Neurontin discontinued. Bilateral lower extremity cellulitis Acute kidney injury likely related to Bactrim use Atypical chest pain Hypertension Dyslipidemia Diabetes mellitus type 2 with hyperglycemia Hospital Course: Patient is a 79-year-old female with past medical history of diabetes mellitus type 2, COPD, and hypertension who presented to the emergency department secondary to altered mentation. At that point in time she did report some chest pain. Evaluation in the ER demonstrated an EKG was normal sinus rhythm. CT head showed possible basal artery tip aneurysm but was otherwise unremarkable. Chest x-ray was unremarkable. Thoracic aorta head CT was negative. She was found have an elevated white blood cell count of 11.6, troponin was negative at 0.018. She was admitted for further evaluation of her altered mentation chest pain. She was seen by cardiology patient had a Lexiscan done in February 2019 which showed no signs of ischemic changes and troponin remain negative therefore acute coronary event was ruled out. She was seen by neurology who recommended an MRA which showed no evidence of aneurysm. Her mentation improved and she was back to baseline. She was determined stable for discharge. Secondary to her increasing creatinine her Bactrim was switched to Cipro to complete a course for her lower extremity cellulitis. Her white blood cell count normalized. She will follow up with Dr. Crawford and Dr. Quezada. She was taken off of her Catapres once daily and prescribed metoprolol for better blood pressure control during her hospital stay. She was also taken off her Neurontin and baclofen as it was felt that her confusion was likely secondary to polypharmacy. She was resumed on her oral diabetic agents. Cymbalta was taken off of her med rec as it does not appear she has had this filled within the last 90 days. She likely could be resumed on Neurontin on follow-up with Dr. Crawford is determined appropriate as it appears she has been taking this but baclofen was added on 06/28. I have recommended basic metabolic profile in 3-5 days to reassess renal function. Patient seen and examined at bedside. No pain, no chest pain, no shortness of breath, no nausea, no headache. Feeling well and wanting to go home. Vital signs reviewed and stable. General: non toxic, no distress, appears at stated age Derm: warm, dry Head: atraumatic, normocephalic, symmetric Eyes: EOMI, no lid lag, anicteric sclera Mouth: no lip lesion, mucus membranes moist Cardiovascular: S1S2 reg, no murmur, positive posterior tibial pulse bilateral, Lungs: CTA bilateral, no rhonchi, no rales , no accessory muscle use Abdominal: soft, nontender to palpation, no guarding, no appreciable organomegaly Ext: no gross muscle atrophy, no edema, no contractures Neuro: CN II-XI grossly intact, no focal neuro deficits Psych: Alert, oriented, appropriate affect A total of 25 minutes of time were spent preparing this complex discharge summary . Patient Condition at Discharge: Serious Plan - Discharge Summary Discharge Rx Participant: No New Discharge Prescriptions: New Ciprofloxacin HCl [Cipro] 500 mg PO Q12HR #8 tablet Metoprolol Tartrate [Lopressor] 12.5 mg PO BID #60 tab Continue traMADol-ACETAMINOP 37.5-325MG [Ultracet] 1 tab PO Q4HR PRN PRN Reason: Pain Furosemide [Lasix] 40 mg PO DAILY Aspirin 81 mg PO DAILY #30 chew Isosorbide Mononitrate ER [Imdur] 30 mg PO DAILY #30 tab.er.24h Atorvastatin [Lipitor] 20 mg PO DAILY #30 tab glipiZIDE XL [Glucotrol XL] 2.5 mg PO DAILY Budesonide/Formoterol Fumarate [Symbicort 160-4.5 Mcg Inhaler] 2 puff INHALATION RT-BID Albuterol Sulfate [Proair Hfa] 2 puff INHALATION RT-Q4H PRN PRN Reason: Shortness Of Breath Enalapril [Vasotec] 2.5 mg PO DAILY Lactulose 10 gm PO DAILY PRN PRN Reason: Constipation Discontinued cloNIDine HCL [Catapres] 0.1 mg PO DAILY DULoxetine HCL [Cymbalta] 30 mg PO DAILY Gabapentin [Neurontin] 300 mg PO QID Baclofen [Lioresal] 10 mg PO TID PRN PRN Reason: Pain Discharge Medication List Furosemide [Lasix] 40 mg PO DAILY 12/09/18 [History] traMADol-ACETAMINOP 37.5-325MG [Ultracet] 1 tab PO Q4HR PRN 12/09/18 [History] Aspirin 81 mg PO DAILY #30 chew 12/15/18 [Rx] Atorvastatin [Lipitor] 20 mg PO DAILY #30 tab 12/15/18 [Rx] Isosorbide Mononitrate ER [Imdur] 30 mg PO DAILY #30 tab.er.24h 12/15/18 [Rx] Albuterol Sulfate [Proair Hfa] 2 puff INHALATION RT-Q4H PRN 06/29/19 [History] Budesonide/Formoterol Fumarate [Symbicort 160-4.5 Mcg Inhaler] 2 puff INHALATION RT-BID 06/29/19 [History] Enalapril [Vasotec] 2.5 mg PO DAILY 06/29/19 [History] Lactulose 10 gm PO DAILY PRN 06/29/19 [History] glipiZIDE XL [Glucotrol XL] 2.5 mg PO DAILY 06/29/19 [History] Ciprofloxacin HCl [Cipro] 500 mg PO Q12HR #8 tablet 07/04/19 [Rx] Metoprolol Tartrate [Lopressor] 12.5 mg PO BID #60 tab 07/04/19 [Rx] Follow up Appointment(s)/Referral(s): Magdy Quezada MD [STAFF PHYSICIAN] - 07/18/19 4:15 pm Hu Crawford MD [Primary Care Provider] - 07/13/19 3:00 pm Ambulatory/Diagnostic Orders: Basic Metabolic Panel [LAB.AMB] Time Frame: 3 Days, Location: None Selected Activity/Diet/Wound Care/Special Instructions: Activity: As tolerated Diet: carb consistent Special Instructions: BMP with Home health in 3-5 days RE: YANIRA Discharge Disposition: HOME SELF-CARE
[2019-07-04] MEDS ORDERED: SULFAMETHOX-TMP 400-80MG 1 EACH TAB PO SCH (21:00)
== END 2019-07-04 15:50 | disposition home or self-care (01) ==
LOC: EC 00:08 → 3NMEDONC 05:22
PROVIDERS: ADMIT Internal Medicine; ATTEND Internal Medicine
DX: R41.82 Altered mental status, unspecified (principal); G92 Toxic encephalopathy; N17.9 Acute kidney failure, unspecified; R07.89 Other chest pain; E86.0 Dehydration; E78.5 Hyperlipidemia, unspecified; E11.65 Type 2 diabetes mellitus with hyperglycemia; I25.10 Atherosclerotic heart disease of native coronary artery without angina pectoris; I12.9 Hypertensive chronic kidney disease with stage 1 through stage 4 chronic kidney disease, or unspecified chronic kidney disease; E11.22 Type 2 diabetes mellitus with diabetic chronic kidney disease; N18.9 Chronic kidney disease, unspecified; Z79.84 Long term (current) use of oral hypoglycemic drugs; E11.42 Type 2 diabetes mellitus with diabetic polyneuropathy; J44.9 Chronic obstructive pulmonary disease, unspecified; K21.9 Gastro-esophageal reflux disease without esophagitis; L03.116 Cellulitis of left lower limb; L03.115 Cellulitis of right lower limb; M19.90 Unspecified osteoarthritis, unspecified site; K44.9 Diaphragmatic hernia without obstruction or gangrene; H54.62 Unqualified visual loss, left eye, normal vision right eye; Z90.710 Acquired absence of both cervix and uterus; G89.29 Other chronic pain; M54.9 Dorsalgia, unspecified; Z79.82 Long term (current) use of aspirin; Z79.891 Long term (current) use of opiate analgesic; Z79.51 Long term (current) use of inhaled steroids; Z79.899 Other long term (current) drug therapy; Z88.0 Allergy status to penicillin; Z91.040 Latex allergy status
CPT/HCPCS: 96361 ×2; 96372 ×4; 96360; 99285; 36415; 94640 ×6; 94760; 93005; 80053; 80048 ×3; 82140; 84484; 85025 ×3; 81001; 85610; 85730; 80306; 71046; 70450; 71275; 74174; 70544; G0378 ×4; J2270; J1644 ×4; Q9967

== ENCOUNTER → 2020-06-27 | Outpatient (CLI) | payer MEDICARE | END | disposition home or self-care (01) | LOC: LABWHC1 13:22 | PROVIDERS: ATTEND Nurse Practitioner Adult Health | DX: R05 Cough (principal) | CPT/HCPCS: U0003; C9803 ==

== ENCOUNTER → 2021-04-30 | Outpatient (CLI) | payer MEDICARE ==
--- NOTE | 2021-04-30 14:40 | US ---
EXAMINATION TYPE: US abdomen complete DATE OF EXAM: 04/30/2021 COMPARISON: NONE CLINICAL HISTORY: 80-year-old female N18.30 CHR KIDNEY DISEASE STAGE 3. RUQ pain TECHNIQUE: Multiple sonographic images of the abdomen are obtained. FINDINGS: EXAM MEASUREMENTS: Liver Length: 14.8 cm Gallbladder Wall: 0.2 cm CBD: 5.5 mm Spleen: 8.7 cm Right Kidney: 8.0 x 3.9 x 3.6 cm Left Kidney: 8.0 x 5.1 x 3.8 cm Pancreas: Portions of the pancreatic body are visualized. The head and tail are partially obscured b y bowel gas shadowing. Liver: scanned intercostally, visualized portions wnl, limited by overlying bowel gas and rib shadow ing. Gallbladder: Borderline hydropic measuring 4 cm wide. Evidence for sonographic Field's sign: yes CBD: 5.5 mm, upper limits of normal in caliber. Spleen: wnl Right Kidney: wnl Left Kidney: visualized portions wnl, limited by overlying bowel gas Upper IVC: wnl Abd Aorta: wnl IMPRESSION: 1. Limited visualization due to bowel gas and intercostal imaging of some portions. 2. Borderline hydropic gallbladder likely due to fasting state. If concern for early acute cholecysti tis, either follow-up ultrasound or HIDA scan can be considered. 3. No biliary ductal dilatation.
== END | disposition home or self-care (01) ==
LOC: RADUSWWP 09:24
PROVIDERS: ATTEND Internal Medicine
DX: R10.11 Right upper quadrant pain (principal)
CPT/HCPCS: 76700

== ENCOUNTER 2021-06-10 14:28 | Emergency (ER) | payer MEDICARE ==
[2021-06-10 14:40] VITALS: TEMP 98.2
[2021-06-10 17:12] LABS: Basophils % (A) 1 %; Eosinophils # (A) 0.5 k/uL (0-0.7); Eosinophils % (A) 6 %; HCT 43.8 % (34.0-46.0); HGB 14.4 gm/dL (11.4-16.0); Lymphocytes # (A) 1.4 k/uL (1.0-4.8); Lymphocytes % (A) 18 %; MCH 31.4 pg (25.0-35.0); MCHC 32.8 g/dL (31.0-37.0); MCV 95.7 fL (80.0-100.0); Mean Platelet Volume 6.8; Monocytes # (A) 0.3 k/uL (0-1.0); Monocytes % (A) 4 %; Neutrophils # (A) 5.1 k/uL (1.3-7.7); Neutrophils % (A) 69 %; Platelet Count 300 k/uL (150-450); RBC 4.58 m/uL (3.80-5.40); RDW 12.7 % (11.5-15.5); WBC 7.4 k/uL (3.8-10.6)
[2021-06-10 17:25] LABS: Albumin 4.3 g/dL (3.5-5.0); Calcium 9.5 mg/dL (8.4-10.2); Potassium 4.4 mmol/L (3.5-5.1); Total Bilirubin 0.3 mg/dL (0.2-1.3); Total Protein 7.1 g/dL (6.3-8.2)
[2021-06-10 17:27] LABS: INR 0.9 (<1.2); Partial Thromboplastin Time 23.3 sec (22.0-30.0); Prothrombin Time 10.1 sec (9.0-12.0)
--- NOTE | 2021-06-10 17:52 | ED ---
Recheck HPI - General Chief Complaint: Recheck/Abnormal Lab/Rx Stated Complaint: High BP-Sent by Time Seen by Provider: 06/10/21 17:07 Source: patient, RN notes reviewed Mode of arrival: wheelchair Limitations: no limitations - History of Present Illness Initial Comments: Patient is an 81-year-old female that presents to the emergency department complaining of high blood pressure. She notes that she does take medication for this. She notes that her primary care is unsure of why it is higher than normal. Patient is hard of hearing. Patient denied any headache change in vision blurry vision weakness in any extremity slurred speech. Patient was otherwise a well-appearing 81-year-old female in no apparent distress or pain. She was just concerned for her elevated blood pressure. Patient denied any injury, no head. She denied chest pain shortness of breath headache nausea vomiting diarrhea constipation fever fatigue chills. - Related Data Home Medications Medication Instructions Recorded Confirmed traMADol-ACETAMINOP 37.5-325MG 1 tab PO Q6H PRN 12/09/18 06/10/21 [Ultracet] Albuterol Sulfate [Proair Hfa] 2 puff INHALATION RT-Q4H PRN 06/29/19 06/10/21 Enalapril [Vasotec] 2.5 mg PO DAILY 06/29/19 06/10/21 Aspirin 81 mg PO HS 06/10/21 06/10/21 Atorvastatin [Lipitor] 20 mg PO HS 06/10/21 06/10/21 Bimatoprost [Lumigan .01% Ophth 1 drop BOTH EYES HS 06/10/21 06/10/21 Soln] Gabapentin [Neurontin] 100 mg PO HS 06/10/21 06/10/21 Pantoprazole [Protonix] 40 mg PO DAILY 06/10/21 06/10/21 Vit C/E/Zn/Coppr/Lutein/Zeaxan 1 cap PO BID 06/10/21 06/10/21 [Preservision Areds 2 Softgel] glipiZIDE XL [Glucotrol Xl] 5 mg PO DAILY 06/10/21 06/10/21 Previous Rx's Medication Instructions Recorded Enalapril Maleate [Vasotec] 5 mg PO DAILY 10 Days #10 tab 06/10/21 Allergies Allergy/AdvReac Type Severity Reaction Status Date / Time latex Allergy Unknown Verified 06/10/21 17:40 Penicillins Allergy Unknown Verified 06/10/21 17:40 Review of Systems ROS Statement: Those systems with pertinent positive or pertinent negative responses have been documented in the HPI. ROS Other: All systems not noted in ROS Statement are negative. Past Medical History Past Medical History: COPD, Diabetes Mellitus, Eye Disorder, GERD/Reflux, Hypertension Additional Past Medical History / Comment(s): arthitis, hiatal hernia, blind in left eye History of Any Multi-Drug Resistant Organisms: None Reported Past Surgical History: Hysterectomy, Orthopedic Surgery Past Psychological History: No Psychological Hx Reported Past Alcohol Use History: None Reported Past Drug Use History: None Reported General Exam Limitations: no limitations General appearance: alert, in no apparent distress Head exam: Present: atraumatic, normocephalic, normal inspection Eye exam: Present: normal appearance, PERRL, EOMI. Absent: scleral icterus, conjunctival injection, periorbital swelling ENT exam: Present: normal exam, mucous membranes moist Neck exam: Present: normal inspection Respiratory exam: Present: normal lung sounds bilaterally. Absent: respiratory distress, wheezes, rales, rhonchi, stridor Cardiovascular Exam: Present: regular rate, normal rhythm, normal heart sounds. Absent: systolic murmur, diastolic murmur, rubs, gallop, clicks Extremities exam: Present: normal inspection, full ROM, normal capillary refill. Absent: tenderness, pedal edema, joint swelling, calf tenderness Neurological exam: Present: alert, oriented X3 Expanded Patient oriented to: Present: person, place, time Speech: Present: fluid speech Cranial nerves: EOM's Intact: Normal, Nystagmus: Normal, Facial Sensation: Normal Cerebellar function: Finger to Nose: Normal Sensory exam: Upper Extremity Light Touch: Normal, Lower Extremity Light Touch: Normal Motor strength exam: RUE: 5, LUE: 5, RLE: 5, LLE: 5 Psychiatric exam: Present: normal affect, normal mood Skin exam: Present: warm, dry, intact, normal color. Absent: rash Course Vital Signs 06/10/21 06/10/21 14:37 17:18 Temperature 98.2 F Pulse Rate 65 63 Respiratory 18 18 Rate Blood Pressure 184/82 184/72 O2 Sat by Pulse 96 97 Oximetry Medical Decision Making - Medical Decision Making 81-year-old female complaining of high blood pressure, no other symptoms such as headache blurry vision. Labs, EKG ordered. EKG within normal limits. Labs unremarkable, troponin negative, clotting factors within normal limits. Case discussed with Dr. Panchal, patient informed to double her Vasotec to 5 mg daily area Patient is agreeable with discharge home with follow-up to primary care. - Lab Data Result diagrams: 06/10/21 16:53 06/10/21 16:53 Lab Results 06/10/21 06/10/21 06/10/21 Range/Units 16:53 16:53 16:53 WBC 7.4 (3.8-10.6) k/uL RBC 4.58 (3.80-5.40) m/uL Hgb 14.4 (11.4-16.0) gm/dL Hct 43.8 (34.0-46.0) % MCV 95.7 (80.0-100.0) fL MCH 31.4 (25.0-35.0) pg MCHC 32.8 (31.0-37.0) g/dL RDW 12.7 (11.5-15.5) % Plt Count 300 (150-450) k/uL MPV 6.8 Neutrophils % 69 % Lymphocytes % 18 % Monocytes % 4 % Eosinophils % 6 % Basophils % 1 % Neutrophils # 5.1 (1.3-7.7) k/uL Lymphocytes # 1.4 (1.0-4.8) k/uL Monocytes # 0.3 (0-1.0) k/uL Eosinophils # 0.5 (0-0.7) k/uL Basophils # 0.0 (0-0.2) k/uL PT 10.1 (9.0-12.0) sec INR 0.9 (<1.2) APTT 23.3 (22.0-30.0) sec Sodium 137 (137-145) mmol/L Potassium 4.4 (3.5-5.1) mmol/L Chloride 103 (98-107) mmol/L Carbon Dioxide 26 (22-30) mmol/L Anion Gap 8 mmol/L BUN 24 H (7-17) mg/dL Creatinine 0.88 (0.52-1.04) mg/dL Est GFR (CKD-EPI)AfAm 72 (>60 ml/min/1.73 sqM) Est GFR (CKD-EPI)NonAf 62 (>60 ml/min/1.73 sqM) Glucose 97 (74-99) mg/dL Calcium 9.5 (8.4-10.2) mg/dL Total Bilirubin 0.3 (0.2-1.3) mg/dL AST 33 (14-36) U/L ALT 19 (4-34) U/L Alkaline Phosphatase 126 (38-126) U/L Troponin I (0.000-0.034) ng/mL Total Protein 7.1 (6.3-8.2) g/dL Albumin 4.3 (3.5-5.0) g/dL 06/10/21 Range/Units 16:53 WBC (3.8-10.6) k/uL RBC (3.80-5.40) m/uL Hgb (11.4-16.0) gm/dL Hct (34.0-46.0) % MCV (80.0-100.0) fL MCH (25.0-35.0) pg MCHC (31.0-37.0) g/dL RDW (11.5-15.5) % Plt Count (150-450) k/uL MPV Neutrophils % % Lymphocytes % % Monocytes % % Eosinophils % % Basophils % % Neutrophils # (1.3-7.7) k/uL Lymphocytes # (1.0-4.8) k/uL Monocytes # (0-1.0) k/uL Eosinophils # (0-0.7) k/uL Basophils # (0-0.2) k/uL PT (9.0-12.0) sec INR (<1.2) APTT (22.0-30.0) sec Sodium (137-145) mmol/L Potassium (3.5-5.1) mmol/L Chloride (98-107) mmol/L Carbon Dioxide (22-30) mmol/L Anion Gap mmol/L BUN (7-17) mg/dL Creatinine (0.52-1.04) mg/dL Est GFR (CKD-EPI)AfAm (>60 ml/min/1.73 sqM) Est GFR (CKD-EPI)NonAf (>60 ml/min/1.73 sqM) Glucose (74-99) mg/dL Calcium (8.4-10.2) mg/dL Total Bilirubin (0.2-1.3) mg/dL AST (14-36) U/L ALT (4-34) U/L Alkaline Phosphatase (38-126) U/L Troponin I <0.012 (0.000-0.034) ng/mL Total Protein (6.3-8.2) g/dL Albumin (3.5-5.0) g/dL - EKG Data EKG shows normal: sinus rhythm Rate: normal EKG Comments: Ventricular rate 61 bpm, HI interval 182 ms, QRS duration 74 ms, QTC 426 ms, PRT axes 60/-21/36. Normal sinus rhythm, moderate voltage criteria for LVH may be normal variant, borderline ECG. Disposition Clinical Impression: Hypertension Disposition: HOME SELF-CARE Condition: Stable Instructions (If sedation given, give patient instructions): Hypertension (ED) Additional Instructions: Please return to the Emergency Department if symptoms worsen or any other concerns. Follow-up with primary care 1-2 days. Increase Vasotec, high blood pressure medication of 5 mg once daily. Is patient prescribed a controlled substance at d/c from ED?: No Referrals: Brendan Alberts MD [Primary Care Provider] - 1-2 days Time of Disposition: 18:10
[2021-06-10 18:26] VITALS: BP 179/90; PULSE 68; RESP 20
--- NOTE | 2021-06-11 14:46 | P.ARTDOP ---
Arterial Doppler LOWER EXTREMITY ARTERIAL DOPPLER: DATE OF SERVICE: 06/10/2021 Reason for study: Right foot pain. Doppler waveforms: Multiphasic bilaterally throughout with good toe waveforms. Pulse volume recording: []. Pressure gradients: None. Ankle-brachial indices: Greater than 1 bilaterally. Toe brachial indices: 0.76 on the right, 0.74 on the left Impression: Normal study.
== END 2021-06-10 18:33 | disposition home or self-care (01) ==
LOC: EC 14:28
DX: I10 Essential (primary) hypertension (principal); J44.9 Chronic obstructive pulmonary disease, unspecified; E11.9 Type 2 diabetes mellitus without complications; K21.9 Gastro-esophageal reflux disease without esophagitis; Z79.82 Long term (current) use of aspirin; Z88.0 Allergy status to penicillin; Z91.040 Latex allergy status; Z90.710 Acquired absence of both cervix and uterus
CPT/HCPCS: 36415; 80053; 84484; 85025; 85610; 85730; 93005; 99283

== ENCOUNTER → 2021-06-10 | Outpatient (CLI) | payer MEDICARE | END | disposition home or self-care (01) | LOC: RADUSWWP 12:54 | PROVIDERS: ATTEND Internal Medicine | DX: M79.671 Pain in right foot (principal) | CPT/HCPCS: 93922 ==

== ENCOUNTER 2021-06-13 12:24 | Emergency (ER) | payer MEDICARE ==
[2021-06-13 13:12] VITALS: TEMP 98
[2021-06-13] MEDS ORDERED: hydrALAZINE HCL 20 MG/ML 1 ML VIAL IVP STA (13:39)
--- NOTE | 2021-06-13 13:53 | ED ---
General Adult HPI - General Chief complaint: Recheck/Abnormal Lab/Rx Stated complaint: High Blood Pressure Time Seen by Provider: 06/13/21 13:10 Source: patient, RN notes reviewed, old records reviewed Mode of arrival: ambulatory Limitations: no limitations - History of Present Illness Initial comments: This is an 81-year-old female who presents emergency department stating that her blood pressure has been elevated. Patient states she was supposed go to her primary medical care doctor's today but she didn't get up in time so she missed that appointment. Patient states since it was elevated she decided come the emergency department. Patient states she was here recently for elevated blood pressure on enalapril was increased 2.5-5. Patient states he continues to be elevated and she did take her blood pressure medication today. Patient denies any headache patient denies any blurred vision. Patient denies any chest pain difficulty breathing shortness of breath. Patient denies any abdominal pain patient denies nausea vomiting diarrhea. Patient denies any recent fever chills or cough. - Related Data Home Medications Medication Instructions Recorded Confirmed traMADol-ACETAMINOP 37.5-325MG 1 tab PO Q6H PRN 12/09/18 06/10/21 [Ultracet] Albuterol Sulfate [Proair Hfa] 2 puff INHALATION RT-Q4H PRN 06/29/19 06/10/21 Enalapril [Vasotec] 2.5 mg PO DAILY 06/29/19 06/10/21 Aspirin 81 mg PO HS 06/10/21 06/10/21 Atorvastatin [Lipitor] 20 mg PO HS 06/10/21 06/10/21 Bimatoprost [Lumigan .01% Ophth 1 drop BOTH EYES HS 06/10/21 06/10/21 Soln] Gabapentin [Neurontin] 100 mg PO HS 06/10/21 06/10/21 Pantoprazole [Protonix] 40 mg PO DAILY 06/10/21 06/10/21 Vit C/E/Zn/Coppr/Lutein/Zeaxan 1 cap PO BID 06/10/21 06/10/21 [Preservision Areds 2 Softgel] glipiZIDE XL [Glucotrol Xl] 5 mg PO DAILY 06/10/21 06/10/21 Previous Rx's Medication Instructions Recorded Enalapril Maleate [Vasotec] 5 mg PO DAILY 10 Days #10 tab 06/10/21 Allergies Allergy/AdvReac Type Severity Reaction Status Date / Time latex Allergy Unknown Verified 06/13/21 13:09 Penicillins Allergy Unknown Verified 06/13/21 13:09 Review of Systems ROS Statement: Those systems with pertinent positive or pertinent negative responses have been documented in the HPI. ROS Other: All systems not noted in ROS Statement are negative. Past Medical History Past Medical History: COPD, Diabetes Mellitus, Eye Disorder, GERD/Reflux, Hypertension Additional Past Medical History / Comment(s): arthitis, hiatal hernia, blind in left eye History of Any Multi-Drug Resistant Organisms: None Reported Past Surgical History: Hysterectomy, Orthopedic Surgery Past Psychological History: No Psychological Hx Reported Smoking Status: Never smoker Past Alcohol Use History: None Reported Past Drug Use History: None Reported General Exam - General Exam Comments Initial Comments: GENERAL: Patient is well-developed and well-nourished. Patient is nontoxic and well- hydrated and is in no acute distress. ENT: Neck is soft and supple. No significant lymphadenopathy is noted. Oropharynx is clear. Moist mucous membranes. Neck has full range of motion without eliciting any pain. EYES: The sclera were anicteric and conjunctiva were pink and moist. Extraocular movements were intact and pupils were equal round and reactive to light. Eyelids were unremarkable. PULMONARY: Unlabored respirations. Good breath sounds bilaterally. No audible rales rhonchi or wheezing was noted. CARDIOVASCULAR: There is a regular rate and rhythm without any murmurs gallops or rubs. ABDOMEN: Soft and nontender with normal bowel sounds. SKIN: Skin is clear with no lesions or rashes and otherwise unremarkable. NEUROLOGIC: Patient is alert and oriented x3. Cranial nerves II through XII are grossly intact. Motor and sensory are also intact. Normal speech, volume and content. Symmetrical smile. MUSCULOSKELETAL: Normal extremities with adequate strength and full range of motion. LYMPHATICS: No significant lymphadenopathy is noted PSYCHIATRIC: Normal psychiatric evaluation. Limitations: no limitations Course Vital Signs 06/13/21 06/13/21 06/13/21 13:08 14:03 14:36 Temperature 98.0 F Pulse Rate 69 61 82 Respiratory 18 18 16 Rate Blood Pressure 173/89 174/101 133/71 O2 Sat by Pulse 96 97 96 Oximetry Medical Decision Making - Medical Decision Making EKG shows normal sinus rhythm at 62 bpm [place] interval 170 QRS is 82 QT interval is 44 QTC is 410. Patient's EKG shows no ST segment elevation or depression. I gave the patient hydralazine and her blood pressure came down 133/75. Patient remained asymptomatic throughout her course in the ED. - Lab Data Result diagrams: 06/13/21 13:45 06/13/21 13:45 Lab Results 06/13/21 06/13/21 Range/Units 13:45 13:45 WBC 7.7 (3.8-10.6) k/uL RBC 4.56 (3.80-5.40) m/uL Hgb 13.8 (11.4-16.0) gm/dL Hct 43.2 (34.0-46.0) % MCV 94.7 (80.0-100.0) fL MCH 30.2 (25.0-35.0) pg MCHC 31.9 (31.0-37.0) g/dL RDW 12.9 (11.5-15.5) % Plt Count 289 (150-450) k/uL MPV 6.7 Neutrophils % 73 % Lymphocytes % 15 % Monocytes % 7 % Eosinophils % 3 % Basophils % 0 % Neutrophils # 5.6 (1.3-7.7) k/uL Lymphocytes # 1.2 (1.0-4.8) k/uL Monocytes # 0.5 (0-1.0) k/uL Eosinophils # 0.2 (0-0.7) k/uL Basophils # 0.0 (0-0.2) k/uL Sodium 137 (137-145) mmol/L Potassium 4.3 (3.5-5.1) mmol/L Chloride 105 (98-107) mmol/L Carbon Dioxide 26 (22-30) mmol/L Anion Gap 6 mmol/L BUN 15 (7-17) mg/dL Creatinine 0.80 (0.52-1.04) mg/dL Est GFR (CKD-EPI)AfAm 80 (>60 ml/min/1.73 sqM) Est GFR (CKD-EPI)NonAf 70 (>60 ml/min/1.73 sqM) Glucose 156 H (74-99) mg/dL Calcium 10.0 (8.4-10.2) mg/dL Total Bilirubin 0.4 (0.2-1.3) mg/dL AST 25 (14-36) U/L ALT 15 (4-34) U/L Alkaline Phosphatase 107 (38-126) U/L Total Protein 6.5 (6.3-8.2) g/dL Albumin 3.9 (3.5-5.0) g/dL Disposition Clinical Impression: Hypertensive urgency Disposition: HOME SELF-CARE Condition: Good Instructions (If sedation given, give patient instructions): Hypertension (ED) Additional Instructions: Patient should take 5 mg of enalapril as prescribed and if after an hour and half her blood pressure is still elevated systolic above 160 or diastolic above 100 she should take another 5 mg enalapril. Patient is to document this and her blood pressure and follow-up with the primary medical care doctor. Is patient prescribed a controlled substance at d/c from ED?: No Referrals: Brendan Alberts MD [Primary Care Provider] - 1-2 days Time of Disposition: 14:40
[2021-06-13 14:27] LABS: Basophils % (A) 0 %; Eosinophils # (A) 0.2 k/uL (0-0.7); Eosinophils % (A) 3 %; HCT 43.2 % (34.0-46.0); HGB 13.8 gm/dL (11.4-16.0); Lymphocytes # (A) 1.2 k/uL (1.0-4.8); Lymphocytes % (A) 15 %; MCH 30.2 pg (25.0-35.0); MCHC 31.9 g/dL (31.0-37.0); MCV 94.7 fL (80.0-100.0); Mean Platelet Volume 6.7; Monocytes # (A) 0.5 k/uL (0-1.0); Monocytes % (A) 7 %; Neutrophils # (A) 5.6 k/uL (1.3-7.7); Neutrophils % (A) 73 %; Platelet Count 289 k/uL (150-450); RBC 4.56 m/uL (3.80-5.40); RDW 12.9 % (11.5-15.5); WBC 7.7 k/uL (3.8-10.6)
[2021-06-13 14:36] VITALS: BP 133/71; PULSE 82; RESP 16
[2021-06-13 14:39] LABS: Albumin 3.9 g/dL (3.5-5.0); Potassium 4.3 mmol/L (3.5-5.1); Total Bilirubin 0.4 mg/dL (0.2-1.3); Total Protein 6.5 g/dL (6.3-8.2)
== END 2021-06-13 15:30 | disposition home or self-care (01) ==
LOC: EC 12:24
DX: I16.0 Hypertensive urgency (principal); J44.9 Chronic obstructive pulmonary disease, unspecified; E11.9 Type 2 diabetes mellitus without complications; K21.9 Gastro-esophageal reflux disease without esophagitis; Z79.82 Long term (current) use of aspirin; Z88.0 Allergy status to penicillin; Z91.040 Latex allergy status; Z90.710 Acquired absence of both cervix and uterus
CPT/HCPCS: 99283; 96374; 36415; 93005; 80053; 85025; J0360

== ENCOUNTER → 2023-12-09 | Outpatient (CLI) | payer MEDICARE ==
--- NOTE | 2023-12-10 09:02 | US ---
EXAMINATION TYPE: US thyroid st tissue head/neck DATE OF EXAM: 12/09/2023 COMPARISON: 12/11/2018 CLINICAL INDICATION: Female, 83 years old with history of C13 THY CA; thyroidectomy 3 weeks ago. hist ory of thyroid cancer GLAND SIZE: Right Lobe: Surgically absent Left Lobe: Surgically absent Bilateral neck scanned, lymph nodes bilaterally Thyroid bed appears heterogeneous, ?post surgical changes Multiple well-circumscribed hypoechoic masses presumably representing lymph nodes. None are enlarged based on their short axis measurements. IMPRESSION: 1. Thyroidectomy. 2. Multiple benign appearing well defined markedly hypoechoic masses which could represent lymph node s none of which are enlarged based on short axis measurements.
--- NOTE | 2023-12-13 19:31 | BD ---
EXAMINATION TYPE: Axial Bone Density DATE OF EXAM: 12/09/2023 CLINICAL HISTORY: 83 years old Female. ICD-10 CODE: M810 OSTEOP Height: 58 Weight: 160 FRAX RISK QUESTIONS: Alcohol (3 or more units per day): no Family History (Parent hip fracture): no Glucocorticoids (More than 3mos): no (Ex: prednisone, prednisolone, methylprednisolone, dexamethasone, and hydrocortisone). History of Fracture in Adulthood: wrist, hand, ankle Secondary Osteoporosis: 1. Type 1 Diabetes: no 2. Hyperthyroidism: no 3. Menopause before 45: no 4. Malnutrition: no 5. Chronic liver disease: no Rheumatoid Arthritis: no Current Tobacco Use: no RISK FACTORS HISTORY OF: Hip Fracture (Right/Left): no Spine Fracture: no History of Wrist Fracture: no Surgery to Spine/Hip(right/left)/Wrist (right/left): no MEDICATIONS: Thyroid Medications: no Osteoporosis Medications: no Best History possible EXAM MEASUREMENTS: Bone mineral densitometry was performed using the [employer]. Bone mineral density as measured about the Lumbar spine is: ----- L1-L4(G/cm2): 1.426 T Score Values are as follows: ----- L1: 1.1 ----- L2: 2.5 ----- L3: 3.1 ----- L4: 1.5 ----- L1-L4: 2.0 Z Score Values are as follows: ----- L1: 2.8 ----- L2: 4.1 ----- L3: 4.7 ----- L4: 3.2 ----- L1-L4: 3.7 Baseline Study Bone mineral density about the R hip (g/cm2): 0.839 Bone mineral density about the L hip (g/cm2): 0.864 T Score values are as follows: -----R Neck: -1.7 -----L Neck: -1.5 -----R Total: -1.3 -----L Total: -1.1 Z Score values are as follows: -----R Neck: 0.4 -----L Neck: 0.6 -----R Total: 0.7 -----L Total: 0.9 Baseline Study FRAX%s: The graph provided illustrates a 13.9% chance for a major osteoporotic fx and a 3.9% chance f or the hips probability for fx in 10 years time. IMPRESSION: Osteopenia (T Score between -2.5 and -1). There is slightly increased risk of fracture and the patient may be considered for treatment. Re-Screen 2-5 years. NOTE: T-SCORE=SD OF THE YOUNG ADULT MEAN.
== END | disposition home or self-care (01) ==
LOC: RADBDWWP 14:17
PROVIDERS: ATTEND Internal Medicine
DX: M85.89 Other specified disorders of bone density and structure, multiple sites (principal); E07.89 Other specified disorders of thyroid; C73 Malignant neoplasm of thyroid gland; M81.0 Age-related osteoporosis without current pathological fracture
CPT/HCPCS: 76536; 77080

== ENCOUNTER 2024-12-27 12:49 | Day surgery (SDC) | payer MEDICARE ==
[2024-12-27] MEDS: IV FLUID CONTINUATION 1,000 ML IV ONE (13:07)
[2024-12-27 13:34] LABS: Glucose,Whole Blood 124 mg/dL (70-110)
[2024-12-27] MEDS: EMPTY BAG 1 BAG with SODIUM CHLORIDE 0.9% 1,000 ML IV ONE (13:38)
[2024-12-27] MEDS: MIDAZOLAM 2 MG/2 ML VIAL IVP ONE ×2 (14:45→15:00)
[2024-12-27] MEDS: LIDOCAINE 1% INJ 10MG/ML (20 ML MDV) SQ ONE (14:46)
[2024-12-27] MEDS: HEPARIN SODIUM (1,000 UNIT/ML) 1,000 UNIT in SODIUM CHLORIDE 0.9% 1,000 ML IRRIGATION ONE (14:55)
[2024-12-27] MEDS: HEPARIN SODIUM,PORCINE (1 ML) 2,500 UNIT in SODIUM CHLORIDE 0.9% 250 ML IRRIGATION ONE (14:56)
[2024-12-27] MEDS: IOPAMIDOL-370 100ML BTL INJ ONE (15:00)
[2024-12-27] MEDS: hydrALAZINE HCL 20 MG/ML 1 ML VIAL IVP ONE ×2 (15:05→15:10)
[2024-12-27] MEDS ORDERED: NALOXONE 0.4 MG/ML 1 ML VIAL IVP PRN (15:14)
--- NOTE | 2024-12-27 15:18 | P.PCN ---
Date of Procedure: 12/27/24 Operative Findings: AN ABDOMINAL AORTOGRAM AND BILATERAL LOWER EXTREMITIES RUNOFF PERFORMING PHYSICIAN: Magdy Quezada MD PROCEDURE PERFORMED: 1. An abdominal aortogram 2. Bilateral lower extremities runoff 3.Ultrasound-guided access of the right common femoral artery INDICATION: Symptomatic 84-year-old female patient with abnormal duplex study COMPLICATION: None LEVEL OF SEDATION: Moderate was sedation length of 35 APPROACH: Right common femoral artery PROCEDURE DESCRIPTION: After obtaining informed consent and explaining the procedure benefits, risks, and complications, the patient was brought to the cardiac label remover. The right groin was prepped and draped in sterile fashion. The right common femoral artery was cannulated using micropuncture technique, under ultrasound guidance. A micropuncture wire was advanced, and the micropuncture sheath was advanced over the wire, then the micropuncture sheath was exchanged over an 0.35 wire into a 5-[place]vian sheath dilator assembly then the wire and dilator were removed and sheath was flushed. We did an abdominal aortogram and bilateral lower extremities runoff using 5- [place] pigtail catheter using a power injection. The catheter was initially placed at the level of the renal arteries, and it was pulled into above the bifurcation of the aorta into right and left common iliac arteries. The procedure was completed and there was no complications. 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
--- NOTE | 2024-12-27 15:47 | IR ---
EXAMINATION TYPE: IR angio abdominal w runoff DATE OF EXAM: 12/27/2024 CLINICAL INDICATION: Female, 84 years old with history of Leg pain, 6.2m/11.0624DAP, Rt gr manual, TECHNIQUE: Fluoroscopy. COMPARISON: None. FINDINGS: Fluoroscopic guidance was provided during angiogram with runoff procedure performed by Dr. Quezada. A total of 372 seconds of fluoroscopic time was utilized during the procedure and 88 spot mathew ges was acquired. TOTAL DAP = 1106.2 microGym2. IMPRESSION: As Above. [facility], , 12/27/2024 3:45 PM
[2024-12-27] MEDS ORDERED: diphenhydrAMINE 25 MG CAP PO PRN (17:44)
[2024-12-27] MEDS ORDERED: ALBUTEROL NEBULIZED 2.5 MG/3 ML INHALATION PRN (17:44)
[2024-12-27] MEDS: SODIUM CHLORIDE 0.9% 1,000 ML in EMPTY BAG 1 BAG IV SCH (18:51)
[2024-12-27] MEDS: ASPIRIN 81 MG PO SCH (21:13)
[2024-12-27] MEDS: ATORVASTATIN 20 MG TAB PO SCH (21:13)
[2024-12-27] MEDS: ACETAMINOPHEN TAB 325 MG TAB PO SCH (21:13)
[2024-12-27] MEDS: GABAPENTIN 100 MG CAP PO SCH (21:14)
[2024-12-27] MEDS: lisinopriL 20 MG TAB PO SCH (21:14)
[2024-12-27] MEDS: carvediloL 3.125 MG TAB PO SCH (21:14)
[2024-12-27] MEDS: VIT A,C & E-LUTEIN-MINERALS 1 EACH TAB PO SCH (21:15)
[2024-12-27] MEDS: BACLOFEN 10 MG TAB PO SCH (21:15)
[2024-12-27] MEDS: DORZOLAMIDE-TIMOLOL 2.23%/0.68 10ML BTL RIGHT EYE SCH (21:19)
[2024-12-27] MEDS: LATANOPROST 0.005% OPHTH DROPS 2.5 ML BTL BOTH EYES SCH (21:20)
[2024-12-28 06:16] LABS: Glucose,Whole Blood 76 mg/dL (70-110)
[2024-12-28] MEDS: LEVOTHYROXINE 112 MCG TAB PO SCH (06:26)
[2024-12-28 07:35] LABS: Basophils # (A) 0.04 10*3/uL (0.00-0.10); Basophils % (A) 0.7 %; Eosinophils # (A) 0.29 10*3/uL (0.04-0.35); Eosinophils % (A) 5.2 %; HCT 40.7 % (37.2-46.3); HGB 13.3 g/dL (12.0-15.0); Lymphocytes # (A) 0.67 10*3/uL (0.90-5.00); MCH 31.4 pg (27.0-32.0); MCHC 32.7 g/dL (32.0-37.0); MCV 96.2 fL (80.0-97.0); Mean Platelet Volume 9.2 fL (9.5-12.2); Monocytes % (A) 10.8 %; Neutrophils # (A) 3.96 10*3/uL (1.80-7.70); Neutrophils % (A) 70.9 %; Platelet Count 204 10*3/uL (140-440); RBC 4.23 10*6/uL (4.10-5.20); RDW 13.2 % (11.5-14.5); WBC 5.58 10*3/uL (4.50-10.00)
[2024-12-28 08:02] VITALS: BP 138/70; PULSE 60; RESP 16; TEMP 97.7
[2024-12-28 08:06] LABS: African American GFR (CKD) 62 (>60 ml/min/1.73 sqM); Anion Gap 10 mmol/L; Blood Urea Nitrogen 28 mg/dL (7-17); Calcium 9.1 mg/dL (8.4-10.2); Carbon Dioxide 23 mmol/L (22-30); Chloride 109 mmol/L (98-107); Glucose 92 mg/dL (74-99); Non-African American GFR(CKD) 54 (>60 ml/min/1.73 sqM); Potassium 4.2 mmol/L (3.5-5.1); Sodium 142 mmol/L (137-145)
[2024-12-28] MEDS: MELOXICAM 7.5 MG TAB PO SCH (09:05)
[2024-12-28] MEDS: MAGNESIUM OXIDE 400 MG TAB PO SCH (09:05)
[2024-12-28] MEDS: glipiZIDE 5 MG TAB PO SCH (09:05)
[2024-12-28] MEDS: DULoxetine HCL 30 MG CAPSULE.DR PO SCH (09:06)
[2024-12-28] MEDS: CHOLECALCIFEROL 25 MCG (1000 IU) TABLET PO SCH (09:07)
[2024-12-28] MEDS: FUROSEMIDE 20 MG TAB PO SCH (09:08)
[2024-12-28] MEDS: FOLIC ACID 1 MG TAB PO SCH (09:08)
== END 2024-12-28 11:28 | disposition home or self-care (01) ==
LOC: CATHCVL 12:49 → 6NMEDSUR 17:26 → CATHCVL 12-28 11:28
PROVIDERS: ATTEND Internal Medicine Interventional Cardiology
DX: R93.1 Abnormal findings on diagnostic imaging of heart and coronary circulation (principal); E11.9 Type 2 diabetes mellitus without complications; I10 Essential (primary) hypertension; E78.5 Hyperlipidemia, unspecified; Z86.73 Personal history of transient ischemic attack (TIA), and cerebral infarction without residual deficits; Z79.82 Long term (current) use of aspirin; Z79.899 Other long term (current) drug therapy; Z79.84 Long term (current) use of oral hypoglycemic drugs
CPT/HCPCS: 99152; 99153; 36200; 75625; 75716; 80048; 85025; C1769 ×4; C1894 ×2; C1887; J2250; J0360; J1644 ×2; J2003; Q9967